=== PATIENT | male | born 1955 | race Caucasian/White ===

== ENCOUNTER 2022-04-24 10:35 | Inpatient (IN) | payer OTHER ==
[~2022-04-24] VITALS: Ht 170.2 cm; Wt 66.0 kg
[2022-04-24 11:09] LABS: Hematocrit 48.3 % (37.0-53.0); LYMPHOCYTES ABSOLUTE AUTO 0.18 K/mm3 (0.84-5.20); LYMPHOCYTES PERCENT AUTO 2 % (21-46); MONOCYTES ABSOLUTE AUTO 0.49 K/mm3 (0.16-1.47); MONOCYTES PERCENT AUTO 5 % (4-13); Mean Corpuscular HGB 30.1 pg (26.0-34.0); Mean Corpuscular HGB Conc 33.1 g/dL (31.5-36.5); Mean Corpuscular Volume 91 fL (80-100); Mean Platelet Volume 12.8 fL (9.1-12.4); NRBC ABSOLUTE 0.03 K/mm3 (0.00-0.02); NRBC Auto 0.3 /100 WBC (0.0-0.2); Platelet Count 131 K/mm3 (150-400); RDW Coefficient Variation 14.4 % (11.7-14.2); RDW Standard Deviation 47.8 fL (35.1-46.3); Red Blood Cell Count 5.31 M/mm3 (4.30-5.90); White Blood Cell Count 9.09 K/mm3 (4.00-11.30)
[2022-04-24 11:10] LABS: BASOPHILS ABSOLUTE AUTO 0.01 K/mm3 (0.00-0.23); BASOPHILS PERCENT AUTO 0 % (0-2); EOSINOPHILS PERCENT AUTO 0 % (0-6); IMMATURE GRAN ABSOLUTE AUTO 0.08 K/mm3 (0.00-0.10); IMMATURE GRAN PERCENT AUTO 1 % (0-1); NEUTROPHILS ABSOLUTE AUTO 8.33 K/mm3 (1.96-9.15); NEUTROPHILS PERCENT AUTO 92 % (41-73)
[2022-04-24 11:11] LABS: PCO2 Arterial 65.4 mmHg (35-45); PO2 Arterial 61.3 mmHg (80-100)
[2022-04-24 11:12] LABS: pH Blood Arterial 7.22 (7.35-7.45)
[2022-04-24 11:28] LABS: Alanine Aminotransfer (ALT/SGP 31 U/L (12-78); Albumin, Blood 2.3 g/dL (3.4-5.0); Albumin/Globulin Ratio 0.6 (0.8-1.8); Alk Phos 50 U/L (50-136); Anion Gap 14 mmol/L (6-16); Aspartate Aminotrans (AST/SGOT 61 U/L (12-37); Bilirubin, Total 0.6 mg/dL (0.1-1.0); Blood Urea Nitrogen 116 mg/dL (8-24); Bun/Creatinine Ratio 16.5 (12.0-20.0); CO2, Blood 28 mmol/L (21-32); CPK Creatine Kinase 183 U/L (39-308); Calcium, Blood 8.4 mg/dL (8.5-10.1); Chloride, Blood 95 mmol/L (98-108); Creatine Kinase MB <1.0 ng/mL (0.0-3.6); Creatine Kinase MB Index Unable to Calculate (0.0-4.0); Creatinine, Blood 7.05 mg/dL (0.60-1.20); Globulin, Blood 3.8 g/dL (2.2-4.0); Glomerular Filtration Rate 8 (60-); Glucose, Blood 105 mg/dL (70-99); Potassium, Blood 4.1 mmol/L (3.5-5.5); Sodium, Blood 137 mmol/L (136-145); Total Protein, Blood 6.1 g/dL (6.4-8.2)
[2022-04-24] MEDS ORDERED: Prinivil10 MG PO (12:36)
[2022-04-24] MEDS ORDERED: ALBU90OI INH (12:37)
[2022-04-24 13:44] LABS: Influenza B, PCR NEGATIVE (NEGATIVE); Resp Syncytial Virus, PCR NEGATIVE (NEGATIVE); SARS-Cov-2 (COVID-19) PCR, MMC NEGATIVE (NEGATIVE)
[2022-04-24 13:44] LABS: Base Excess Venous -4.6 mmol/L; Bicarbonate Venous 19.5 mmol/L (24.0-30.0); PCO2 Venous 63.7 mmHg (38-42); pH Blood Venous 7.18 (7.34-7.37)
[2022-04-24 13:46] LABS: Influenza A, PCR POSITIVE (NEGATIVE)
[2022-04-24 16:23] LABS: Anion Gap 10 mmol/L (6-16); Blood Urea Nitrogen 101 mg/dL (8-24); Bun/Creatinine Ratio 15.4 (12.0-20.0); CO2, Blood 26 mmol/L (21-32); Calcium, Blood 7.5 mg/dL (8.5-10.1); Chloride, Blood 103 mmol/L (98-108); Creatinine, Blood 6.54 mg/dL (0.60-1.20); Glomerular Filtration Rate 9 (60-); Glucose, Blood 121 mg/dL (70-99); Phosphorus, Blood 6.4 mg/dL (2.5-4.9); Potassium, Blood 4.7 mmol/L (3.5-5.5); Sodium, Blood 139 mmol/L (136-145)
--- NOTE | 2022-04-24 16:52 | NUR ---
PT ARRIVED TO ICU AT 1618 TRANSPORTED VIA GURNEY AFTER REPORT RECIEVED FROM ZAY NEWMAN. PT ARRIVES ON BIPAP, NODS APPRPRIATELY AND FOLLOWS COMMANDS BUT DOES NOT VERBALIZE. SKIN WITH UNBLANCHABLE REDNESS TO COCCYX AND BLUISH DISCOLORATION TO ELBOWS AND KNEES. PICTURES TAKEN AND PLACED IN CHART. SBP IN THE 70'S WITH A MAP > 65. DR. HUIZAR CONSULTED AND PLACING ORDERS. LAB AT BEDSIDE TO DRAW STAT LABS. RN TO CONTINUE TO MONITOR.
[2022-04-24 17:29] LABS: PCO2 Arterial 60.2 mmHg (35-45); PO2 Arterial 62.8 mmHg (80-100); pH Blood Arterial 7.19 (7.35-7.45)
--- NOTE | 2022-04-24 17:34 | NUR ---
CRITICAL ABG pH 7.19, pCO2 60.2, pO2 62.8, HCO3 19.1, BE -5.3 RESULTS CALLED AT 1735 BY CADE BREWER, RT
[2022-04-24 17:48] LABS: Source, Urine Foley catheter
[2022-04-24 17:53] LABS: Appearance, Urine Cloudy (Clear); Blood, Urine 5+ (Neg); Color, Urine Yellow (P-Yellow); Glucose Qualitative, Urine 2+ (Neg); Ketones, Urine 1+ (Neg); Leukocyte Esterase, Urine 1+ (Neg); Nitrite, Urine Pos (Neg); Protein, Urine 3+ (Neg); Urobilinogen, Urine NORM (Normal)
[2022-04-24 18:01] LABS: Bilirubin, Urine 1+ (Neg)
[2022-04-24 18:02] LABS: Bacteria Many /hpf; Renal Epithelial Few /hpf (0-Rare); Squamous Epithelial Cells Not Seen /hpf (Few); Transitional Epithelial Cells Rare /hpf (0-Rare)
--- NOTE | 2022-04-24 18:53 | NUR ---
END OF SHIFT SUMMARY PT ORIENTED X2, NODS APPROPRIATELY AND FOLLOWS COMMANDS BUT DOES NOT VERBALIZE MUCH BESIDES MOANING. HE DENIES PAIN DESPITE MOANING WITH MOVEMENT. ARMS AND LEGS STIFF WITH RELOCATION. SINUS RHYTHM, BP LOW WITH SBP 77-85, MAP 60-70, DR. HUIZAR NOTIFIED AND CRITICAL CARE CONSULT REQUESTED. DR. PERRIN NOTIFIED OF CONSULT, HE WILL COME TO BEDSIDE TO ASSESS FOR NEED FOR VASOPRESSORS AND AIRWAY. CURRENTLY ON BIPAP WITH O2 SATS 90-92%. LUNGS CLEAR, DIMINSHED IN BASES. NPO SINCE ARRIVAL TO ER, BS HYPOACTIVE. BOONE TO GRAVITY, ONLY 5ML URINE OUT SINCE BOONE PLACED, DR. HUIZAR NOTIFIED, URINE SENT FOR UA/CULTURE. SKIN WITH PURPLISH DISCOLORATION/MOTTLING, PICS TAKEN. HAS NON-BLANCHABLE REDNESS ON COCCYX, PICS TAKEN. PIV X3, ALL FLUSH WELL, NONE WITHDRAW BLOOD. POWERGLIDE PLACEMENT ATTEMPTED WITH NO SUCCESS. REPORT GIVEN TO ONCOMING SHIFT.
[2022-04-24 19:26] LABS: Albumin/Globulin Ratio 0.5 (0.8-1.8); Bilirubin, Total 0.5 mg/dL (0.1-1.0); Bun/Creatinine Ratio 15.9 (12.0-20.0); Calcium, Blood 7.8 mg/dL (8.5-10.1); Creatinine, Blood 6.74 mg/dL (0.60-1.20); Globulin, Blood 3.8 g/dL (2.2-4.0); Potassium, Blood 4.8 mmol/L (3.5-5.5); Total Protein, Blood 5.8 g/dL (6.4-8.2)
[2022-04-24 20:04] LABS: PCO2 Arterial 59.8 mmHg (35-45); PO2 Arterial 86.1 mmHg (80-100)
[2022-04-24 20:05] LABS: pH Blood Arterial 7.11 (7.35-7.45)
--- NOTE | 2022-04-24 20:30 | NUR ---
Code Summary: 1899 - Dr. Rios came to bedside and informed RN that pt needed to be intubated. 1906 - Pt was given 4mg of versed and 50 mcg of propofol prior to intubation 1908- Intubated with size 8.0 ETT 26cm at the teeth. BP was 74/58 (66) and 1L NS bolus started. 1910 - 200mcg of Neosynephrine given and repeat BP was 88/79 1916 - BP 44/29, gave another 400mcg of Neosynephrine and Norepinephrine drip started at 10mcg. 1919 - Unable to find a pulse in the carotid or femoral regions. CPR started and IV epinephrine given followed by an amp of bicarb and Ca Chloride. CPR continued for about 4 minutes before ROSC was achieved and pulse was able to be felt. 1923 - BP 124/86 1924 - Amiodarone bolus given 1927 - Norepinephrine drip increased to 20mcg. OGT was placed. 1931 - BP 99/83 - vasopressin drip started at 1933. 1935 - 50mcg Prop given in order for Dr. Rios to place a CVC/HD cath 1937 - BP 62/39 - increased Norepinephrine drip increased to 30mcg. 1940 - Epinephrine drip started at 5mcg per Dr. Rios. 1941 - Rocuronium 10mg given per Dr. Rios in order to place central line/ HD cath. 1942 - Propofol 40mcg given 1944 - BP 116/[address] Another 1L NS bolus started 1945 - Propofol drip started at 20mcg/kg/min 1952 - Amiodorone drip at 1mg/min 2019 - Left upper arm axillary arterial line placed by Dr. Rios
[2022-04-24] MEDS ORDERED: Vitamin D1000 UNI1 PO (21:33)
[2022-04-24] MEDS ORDERED: IRON18 MG PO (21:33)
[2022-04-25 00:07] LABS: PCO2 Arterial 42.3 mmHg (35-45); PO2 Arterial 115 mmHg (80-100); pH Blood Arterial 7.28 (7.35-7.45)
[2022-04-25 04:18] LABS: PCO2 Arterial 37.9 mmHg (35-45); PO2 Arterial 191 mmHg (80-100); pH Blood Arterial 7.33 (7.35-7.45)
[2022-04-25 05:10] LABS: Albumin, Blood 2.6 g/dL (3.4-5.0); Bilirubin, Total 0.9 mg/dL (0.1-1.0); Bun/Creatinine Ratio 17.1 (12.0-20.0); Calcium, Blood 7.4 mg/dL (8.5-10.1); Creatinine, Blood 5.54 mg/dL (0.60-1.20); Globulin, Blood 2.6 g/dL (2.2-4.0); Magnesium, Blood 1.9 mg/dL (1.6-2.4); Phosphorus, Blood 4.6 mg/dL (2.5-4.9); Potassium, Blood 3.8 mmol/L (3.5-5.5); Total Protein, Blood 5.2 g/dL (6.4-8.2)
[2022-04-25 05:17] LABS: Hematocrit 35.4 % (37.0-53.0); Hemoglobin 12.3 g/dL (13.5-17.5); Mean Corpuscular HGB 30.4 pg (26.0-34.0); Mean Corpuscular HGB Conc 34.7 g/dL (31.5-36.5); Mean Corpuscular Volume 88 fL (80-100); NRBC ABSOLUTE 0.05 K/mm3 (0.00-0.02); RDW Coefficient Variation 14.2 % (11.7-14.2); RDW Standard Deviation 45.4 fL (35.1-46.3); Red Blood Cell Count 4.04 M/mm3 (4.30-5.90); White Blood Cell Count 5.04 K/mm3 (4.00-11.30)
[2022-04-25 05:44] LABS: Mean Platelet Volume 13.1 fL (9.1-12.4); Platelet Count 85 K/mm3 (150-400)
[2022-04-25 05:54] LABS: BAND PERCENT MAN 30 % (0-8); BASOPHILS PERCENT MAN 0 % (0-2); EOSINOPHILS PERCENT MAN 0 % (0-6); LYMPHOCYTES ABSOLUTE MAN 0.35 K/mm3 (0.84-5.20); LYMPHOCYTES PERCENT MAN 7 % (21-46); MONOCYTES ABSOLUTE MAN 0.35 K/mm3 (0.16-1.47); MONOCYTES PERCENT MAN 7 % (4-13); NEUTROPHILS ABSOLUTE MAN 4.33 K/mm3 (1.96-9.15); SEG NEUTROPHILS PERCENT MAN 56 % (41-73); TOTAL CELLS COUNTED 100
--- NOTE | 2022-04-25 06:09 | NUR ---
Shift summary: Neuro: Pt is sedated on propofol. Pupils are 2mm equal and sluggish. He has a cough but no gag. Nonpurposeful movements to all extremities. At the beginning of the after intubation he was having movements that looked like posturing. Cardiac: Shortly after being intubated, the pt went into PEA arrest but ROSC was achieved. He was maxed on levo, epi and vaso but have since been decreaseing. Levophed is on standby, Epi is at 2 and vaso is at 0.04 with MAP >65. T-max is 100.4. SR/ST with HR 98-110. Pulses in BUE are doppler/thready and pedal pulses are thready. Resp: Intubated with a size 8.0 ETT 24cm at the teeth. Vent settings: 18/500/5/60. His lungs have improved overnight with Clear lungs in Flo upper lobes and crackles in the bases. He has thin pink tinged sputum. GI/: Pt is NPO but an OGT was inserted shortly after intubation. LBM 04/24 and has a pearce draining clear yellow urine. Total output was 175ml. 24 hour urine collection was started on 04/25 2208. Skin: Flo knees, hands and feet are mottled, cool and cyanotic. Cap refill >3. Pressure ulcer to coccyx covered with a mepilex foam dressing. Lines: PIV - IVETTE, Bilateral AC's. CVC HD cath to right subclavian. Arterial line to left axillary. Critical labs: Creatinine 5.54, Trop - 3848, Lactic acid - 4.3
--- NOTE | 2022-04-25 07:15 | NUR ---
ASSUMED CARE OF PT AT 0715 BEDSIDE REPORT RECIEVED FROM ZAY LOCKE. PT INTUBATED AND SEDATED. VASOPRESSORS WEANED DOWN OVER LAST 12 HOURS. BILAT WRIST RESTRAINTS IN PLACE. PT APPEARS TO BE RESTING COMFORTABLY. HAS A LINE IN LEFT AXILLA, TRIALYSIS CATH TO RIGHT CHEST, PIV X3, ALL INFUSING CONTINUOUSLY, ALL FLUSH WELL. OGT CLAMPED. BOONE ON ICE FOR 24 HOUR URINE COLLECTION. RN TO CONTINUE TO MONITOR.
--- NOTE | 2022-04-25 10:29 | NUR ---
Spiritual Care Visit : Nurse request Pt. is Inbutaed and not responsive. Spouse is at bedside and welcomes my visit. Spouse is unsettled about the serious nature of Pts. health. Listen with empathy and calming presence. Spouse displays evidence of engagement. Spouse requested prayer. Prayed with pt. and Spouse. Spouse verbalized gratitude for the spirit care visit.
[2022-04-25 12:50] LABS: Bun/Creatinine Ratio 18.8 (12.0-20.0); Calcium, Blood 7.2 mg/dL (8.5-10.1); Creatinine, Blood 5.15 mg/dL (0.60-1.20); Potassium, Blood 3.2 mmol/L (3.5-5.5)
[2022-04-25 15:40] LABS: Vancomycin, Random 13.7 ug/mL
[2022-04-25 18:25] LABS: Magnesium, Blood 1.6 mg/dL (1.6-2.4)
[2022-04-25 18:28] LABS: Albumin, Blood 2.6 g/dL (3.4-5.0); Anion Gap 12 mmol/L (6-16); Blood Urea Nitrogen 92 mg/dL (8-24); Bun/Creatinine Ratio 18.9 (12.0-20.0); CO2, Blood 24 mmol/L (21-32); Calcium, Blood 7.5 mg/dL (8.5-10.1); Chloride, Blood 101 mmol/L (98-108); Creatinine, Blood 4.87 mg/dL (0.60-1.20); Glomerular Filtration Rate 12 (60-); Glucose, Blood 166 mg/dL (70-99); Phosphorus, Blood 4.1 mg/dL (2.5-4.9); Potassium, Blood 3.3 mmol/L (3.5-5.5); Sodium, Blood 137 mmol/L (136-145)
--- NOTE | 2022-04-25 18:36 | NUR ---
END OF SHIFT SUMMARY NEURO: SEDATED, PROPOFOL INCREASED TO 20, FOLLOWS COMMANDS, NODS APPROPRIATELY CARDIAC: SR, BP SUPPORTED BY VASOPRESSIN AND EPINEPHRINE (SEE FLOWSHEET FOR TITRATIONS). AMIO INFUSING, WILL BE COMPLETED AT 2000. RESP: VENT SETTINGS REMAIN UNCHANGED, FI02 TITRATED DOWN TOLERATED. LUNGS CTA/DIMISHED IN BILAT BASES. OCCAS COUGH, SCANT PINK TINGED SECRETIONS. GI: OGT CLAMPED THROUGHOUT SHIFT. DIETARY CONSULT DONE AND TF ORDERED, ENDORSE TO NOC RN TO START. BS HYPOACTIVE. FSBG ORDERED EVERY 6 HOURS WITH REGULAR S/S (MEDIUM). : BOONE TO GRAVITY DRAINING CLEAR YELLOW URINE. BUMEX GIVEN 30 MIN AFTER ALBUMIN INFUSION WITH GOOD RESULT. URINE OUTPUT >[address] HUIZAR NOTIFIED. 24 HOUR URINE COLLECTION IN PROGRESS, COLLECTION CONTAINER KEPT ON ICE, TO BE COMPLETED AT 2200 TONIGHT. SKIN: CAP REFILL REMAINS > 3 SECONDS WITH BILAT HANDS AND FEET WITH POOR PERFUSION AND PURPLE DISCOLORATION. AFEBRILE. IV: TRIALYSIS CATH WITH 1 PORT INFUSING. PIV X3, ALL FLUSH WELL, 2 INFUSING, 1 SL. VANCOMYCIN GIVEN AFTER TROUGH RESULTED. POTASSIUM REPLACED X1 WITH SECOND REPLACEMENT ORDERED TO BE GIVEN ON NOC SHIFT. AT BEDSIDE, UPDATED ON POC, ALL QUESTIONS ANSWERED. SKIN
[2022-04-25 22:56] LABS: Protein, Urine Quantitative 39.5 mg/dL (0.0-11.9)
[2022-04-26 03:33] LABS: PCO2 Arterial 41.2 mmHg (35-45); pH Blood Arterial 7.47 (7.35-7.45)
[2022-04-26 03:54] LABS: Hematocrit 32.4 % (37.0-53.0); Hemoglobin 11.9 g/dL (13.5-17.5); Mean Corpuscular HGB 30.4 pg (26.0-34.0); Mean Corpuscular HGB Conc 36.7 g/dL (31.5-36.5); Platelet Count 79 K/mm3 (150-400); RDW Coefficient Variation 13.6 % (11.7-14.2); RDW Standard Deviation 41.2 fL (35.1-46.3); Red Blood Cell Count 3.91 M/mm3 (4.30-5.90)
[2022-04-26 04:08] LABS: Mean Corpuscular Volume 83 fL (80-100); Mean Platelet Volume 13.3 fL (9.1-12.4)
[2022-04-26 04:13] LABS: Albumin, Blood 2.3 g/dL (3.4-5.0); Anion Gap 12 mmol/L (6-16); Blood Urea Nitrogen 88 mg/dL (8-24); CO2, Blood 29 mmol/L (21-32); Calcium, Blood 7.4 mg/dL (8.5-10.1); Chloride, Blood 94 mmol/L (98-108); Creatinine, Blood 4.41 mg/dL (0.60-1.20); Glomerular Filtration Rate 14 (60-); Glucose, Blood 175 mg/dL (70-99); Magnesium, Blood 1.6 mg/dL (1.6-2.4); Phosphorus, Blood 3.4 mg/dL (2.5-4.9); Potassium, Blood 2.7 mmol/L (3.5-5.5); Sodium, Blood 135 mmol/L (136-145)
[2022-04-26 05:16] LABS: BAND PERCENT MAN 6 % (0-8); BASOPHILS PERCENT MAN 0 % (0-2); EOSINOPHILS PERCENT MAN 0 % (0-6); LYMPHOCYTES PERCENT MAN 3 % (21-46); MONOCYTES PERCENT MAN 4 % (4-13); SEG NEUTROPHILS PERCENT MAN 87 % (41-73); TOTAL CELLS COUNTED 100
--- NOTE | 2022-04-26 05:51 | NUR ---
Shift summary: Neuro: Pt is sedated on propofol. Pupils are 2mm equal and brisk. He has a cough but no gag. He follows commands but is extremely weak to his extremities. Cardiac: Levophed- 2 Epi- 2 Vaso- 0.04 with MAPs >65 SR/ST with HR 98-108. Pulses thready to all extremities. Flo feet are still mottled Resp: Intubated with a size 8.0 ETT 24cm at the teeth. Vent settings: 18/500/5/30. His lungs have improved overnight with Clear lungs in Flo upper lobes and crackles in the bases. He has minimal secretions GI/: Pt is NPO but an OGT. TF started at 20ml/hr- Pivot 1.5 Bagley draining clear yellow urine. Total output was 4200ml. 24 hour urine collection finished and sent to lab. Skin: Flo knees, hands and feet are mottled and cyanotic. Cap refill >3. Pressure ulcer to coccyx covered with a mepilex foam dressing. Skin tear to scrotum. Lines: PIV - IVETTE, Bilateral AC's. CVC HD cath to right subclavian. Arterial line to left axillary.
--- NOTE | 2022-04-26 07:16 | NUR ---
AROUND 0635 THIS AM PT HAD SHORT RUNS OF VTACH. DR. ARNOLD INFORMED OF LOW MAGNESIUM. MAGNESIUM AND AMIODORONE DRIP ORDERED AND STARTED.
--- NOTE | 2022-04-26 08:00 | NUR ---
SHIFT SUMMARY PT. REMAINS SEDATED AND INTUBATED. VASOPRESSORS INFUSING FOR MAP >65. ART LINE TO LEFT AXILLA. PT. HAS TRIALYSIS CATHETER TO RIGHT CHEST WALL. BOONE AND RECTAL TUBE DRAINING TO GRAVITY. TF INFUSING. PT FEET/ HANDS AND KNEES REMAIN PURPLE DISCOLORED AND MOTTLED.
--- NOTE | 2022-04-26 09:30 | NUR ---
PER DR. MILLER EPI GTT TITRATED OFF. LEVOPHED GTT TITRATED UP TO KEEP MAP >65. REMAINS ON VASOPRESSIN. AMIO GTT ALSO DCD PER DR. MILLER.
[2022-04-26 10:15] LABS: Magnesium, Blood 2.1 mg/dL (1.6-2.4); Potassium, Blood 2.8 mmol/L (3.5-5.5)
[2022-04-26 16:09] LABS: Vancomycin, Random 1.3 ug/mL
--- NOTE | 2022-04-26 17:48 | NUR ---
SHIFT SUMMARY PT. REMAINS SEDATED AND INTUBATED. PT. DOES GRIMACE WITH STIMULI AND OCCASIONALLY COUGHS. MED ONCE FOR PAIN. ART LINE REMAINS IN PLACE, CURRENTLY HAS LEVOPHED AND VASOPRESSIN INFUSING FOR BP SUPPORT. PT. HANDS, FEET, AND KNEES CONTINUE TO BE MOTTLED WITH PURPLE DISCOLORATION AND CAP REFILL > 3SEC. PT. HAS TF INFUSING GOAL REDUCED TO 25ML/HR THIS SHIFT. RECTAL TUBE DRAINING TO GRAVITY. BOONE IN PLACE DRAINING TO GRAVITY. REPORT TO ONCOMING RN.
--- NOTE | 2022-04-26 19:15 | NUR ---
ASSUMED CARE OF PT AT 1915 BEDSIDE REPORT RECIEVED FROM ZAY SANDHU. PT IS INTUBATED AND SEDATED, APPEARS TO BE RESTING COMFORTABLY. SINUS RHYTHM/SINUS TACHYCARDIA WITH PAC'S, BP SUPPORTED BY LEVOPHED AND VASOPRESSIN, A LINE TO LEFT AXILLA. BILAT SOFT WRIST RESTRAINTS IN PLACE. OGT W/TF INFUSING AT 25ML/HR (GOAL), RECTAL TUBE IN PLACE DRAINING BROWN LIQUID STOOL. BOONE TO GRAVITY DRAINING DILUTE YELLOW URINE. CYANOSIS TO HANDS/FEET IMPROVING, MEPILEX TO COCCYX. TRIALYSIS CATH TO RIGHT SC, INFUSING. PIV X2 TO LEFT ARM, INFUSING. NO FAMILY AT BEDSIDE.
--- NOTE | 2022-04-26 20:45 | NUR ---
DIALYSIS NOTE MICROSTRATEGY BI DEVELOPER IN TO FLUSH TRIALYSIS AND LOCK WITH SODIUM CITRATE AT REQUEST OF BEDSIDE RN WITH APPROVAL FROM MD. PT TOLERATED WELL.
[2022-04-27 03:47] LABS: Anion Gap 10 mmol/L (6-16); Blood Urea Nitrogen 81 mg/dL (8-24); Bun/Creatinine Ratio 22.8 (12.0-20.0); CO2, Blood 32 mmol/L (21-32); Chloride, Blood 94 mmol/L (98-108); Creatinine, Blood 3.56 mg/dL (0.60-1.20); Glomerular Filtration Rate 18 (60-); Glucose, Blood 140 mg/dL (70-99); Magnesium, Blood 2.1 mg/dL (1.6-2.4); Phosphorus, Blood 2.5 mg/dL (2.5-4.9); Potassium, Blood 2.9 mmol/L (3.5-5.5); Sodium, Blood 136 mmol/L (136-145); Vancomycin, Random 15.1 ug/mL
[2022-04-27 04:27] LABS: Hematocrit 32.4 % (37.0-53.0); Hemoglobin 11.8 g/dL (13.5-17.5); Mean Corpuscular HGB 30.5 pg (26.0-34.0); Mean Corpuscular HGB Conc 36.4 g/dL (31.5-36.5); Mean Corpuscular Volume 84 fL (80-100); Platelet Count 79 K/mm3 (150-400); RDW Coefficient Variation 13.6 % (11.7-14.2); RDW Standard Deviation 41.5 fL (35.1-46.3); Red Blood Cell Count 3.87 M/mm3 (4.30-5.90); White Blood Cell Count 10.71 K/mm3 (4.00-11.30)
[2022-04-27 04:38] LABS: Mean Platelet Volume 12.8 fL (9.1-12.4)
[2022-04-27 05:56] LABS: BAND PERCENT MAN 4 % (0-8); BASOPHILS PERCENT MAN 0 % (0-2); EOSINOPHILS PERCENT MAN 1 % (0-6); LYMPHOCYTES ABSOLUTE MAN 0.32 K/mm3 (0.84-5.20); LYMPHOCYTES PERCENT MAN 3 % (21-46); MONOCYTES ABSOLUTE MAN 0.32 K/mm3 (0.16-1.47); MONOCYTES PERCENT MAN 3 % (4-13); NEUTROPHILS ABSOLUTE MAN 9.96 K/mm3 (1.96-9.15); SEG NEUTROPHILS PERCENT MAN 89 % (41-73); TOTAL CELLS COUNTED 100
--- NOTE | 2022-04-27 06:21 | NUR ---
END OF SHIFT SUMMARY NEURO: SEDATED W/PROPOFOL, PRN FENTANYL GIVEN X2 TO ADJUNCT SEDATION. OPENS EYES TO VOICE CARDIAC: SINUS RHYTHM/SINUS TACHYCARDIA, BP SUPPORTED BY LEVOPHED AND VASOPRESSIN (SEE ICU-C FLOWSHEET FOR TITRATIONS) RESP: INTUBATED 8.0/25@LIPS SETTINGS AC/VC 18/500/5/30% GI: OGT WITH PIVOT INFUSING AT 25ML/HR (GOAL) WITH 30 ML FLUSH EVERY 4 HOURS. BS HYPOACTIVE, RECTAL TUBE IN PLACE DRAINING LIQUID BROWN STOOL. FLUSHED X1. : BOONE TO GRAVITY DRAINING CLEAR YELLOW URINE. 1800ML OUT THIS SHIFT. SKIN: MEPILEX TO COCCYX, BILAT HANDS/FEET/ELBOWS/KNEES CYANOTIC, IMPROVING. LINES: TRIALYSIS CATH TO RIGHT SC, INFUSING. PIV X2 TO LEFT ARM, UPPER ARM INFUSING, AC SL. LABS: K2.9 AFTER 40MEQ INFUSED. ADDITIONAL 40MEQ INFUSING THIS AM. DR. HUIZAR TO BEDSIDE AT 0600, ORDERS RECIEVED TO DECREASE LR RATE TO 125ML/HR, DRAW STAT K+ AT 1200 AND RN TO CONTACT HIM WITH RESULTS BY 1300. ALL ORDERS PLACED. NO FAMILY AT BEDSIDE. NO PHONE UPDATES PROVIDED.
--- NOTE | 2022-04-27 09:55 | NUR ---
CARE OF PT ASSUMED AT 0700, BEDSIDE REPORT TAKEN. PT SEDATED ON PROPOFOL AT 40MCG FOR VENT BIANCA. PT ATTEMPTS TO OPEN EYES TO VOICE, UNABLE TO FOLLOW COMMANDS. WILL GIVE SED VAC BIANCA AND WEAN PROPOFOL DOWN BIANCA. PT ON LEVO AT 4MCG AND VASO GTT TO KEEP MAP >65, WILL CONT TO WEAN DOWN BIANCA. PT HAS ART LINE TO LEFT AXILLARY, WITH GOOD WAVEFORM. BP TO ARM CORRILATES. PT HAD ABOUT 70CC TUBE FEED RESIDUAL THIS AM, MODERATE AMT OF TUBE FEEDS SUCTIONED FROM MOUTH AND ON TOP OF ETT. TUBE FEEDS STOPPED, DR MILLER NOTIFIED. SCANT CLEAR SECRETIONS SUCTIONED FROM ETT. ABD XRAY ORDERED. OGT TO BE PLACED TO SUCTION X 2HRS PER DR MILLER. MOTTLING NOTED TO KNEE W CYANOTIC TOES/FEET; LEFT WORSE THAN RIGHT. NIGHT RN STATES THIS IS IMPROVED. PT HAS TRIALYSIS CATH TO RIGHT SC. IV PORT IS BEING USED FOR PRESSORS, HD PORTION IS TAPED OFF. PT HAS NOT REQUIRED HD. 40MEQ K+ INFUSING, W REPEAT LAB ORDERED FOR 1200.
--- NOTE | 2022-04-27 12:12 | NUR ---
OVER 700CC TUBE FEED/GASTRIC CONTENT SUCTIONED FROM OGT. CT OF ABD COMPLETE, PT BIANCA WELL. TUBE FEEDS WILL REMAIN OFF FOR NOW W GI CONSULT WHEN AVAILABLE. PT DOES OPEN EYES TO VOICE AND NODS HEAD APPROPRIATELY, NODS HEAD NO TO PAIN. K+ LAB DRAWN, AWAITING RESULTS. PT'S UPDATED. NO OTHER CHANGES
--- NOTE | 2022-04-27 15:47 | NUR ---
VASOPRESSIN PLACED ON SB, LEVOPHED UP TO 6MCG. PICC PLACED FOR TPN. PT BIANCA WELL. PHONE CONSENT OBTAINED FROM PT'S . PT ABLE TO AWAKEN TO VOICE, NODS HEAD NO TO PAIN, AND SMILES. OKAY TO DC ART LINE PER DR MILLER. EXTREMITIES INCLUDING FEET ARE NOW PINK W GOOD CAP REFILL, MOTTLING AND CYANOSIS NO LONGER PRESENT. NO OTHER CHANGES.
--- NOTE | 2022-04-27 17:04 | NUR ---
ASSUMED CARE REPORT RECEIVED FROM ZAY WILLIS. PT SEDATED AND INTUBATED, APPEARS COMFORTABLE. LEVOPHED INFUSING, TITRATING TO KEEP MAP >60. PT'S LOYD VISITED AND WAS UPDATED.
--- NOTE | 2022-04-27 19:20 | NUR ---
ASSUMED CARE THIS NURSE ASSUMED CARE AT 1900 FROM ZAY GERARD FOLLOWING BEDSIDE REPORT. PATIENT IS INTUBATED AND SEDATED. PROPOFOL @ 40MCG/KG/MIN WITH SPONTANEOUS EYE OPENING AND EYE BROW RAISING. NO THRASHING OR PULLING AT RESTRAINTS, NO GRIMACING. LEVOPHED INF @ 8MCG/MIN, NS TKO, LR @ 125/HR, AND KCL 40 MEQ. VASOPRESSIN ON SB. ETT 8.0 25 @ LIP. PATIENT SHOWS WEAK COUGHING FOLLOWING SUCTIONING. BOONE AND RECTAL TUBE PATENET. 20G PIV TO LFA, PICC TO HELLEN W/ 2CM EXPOSED, ART LINE TO LT AXILLA, AND TRIALYSIS CATHETER TO RT SUBCLAVIAN. OGT TO LIS. VSS.
[2022-04-28 03:24] LABS: BASOPHILS ABSOLUTE AUTO 0.01 K/mm3 (0.00-0.23); BASOPHILS PERCENT AUTO 0 % (0-2); EOSINOPHILS ABSOLUTE AUTO 0.13 K/mm3 (0.00-0.68); EOSINOPHILS PERCENT AUTO 2 % (0-6); Hematocrit 29.5 % (37.0-53.0); Hemoglobin 10.9 g/dL (13.5-17.5); IMMATURE GRAN ABSOLUTE AUTO 0.04 K/mm3 (0.00-0.10); IMMATURE GRAN PERCENT AUTO 1 % (0-1); LYMPHOCYTES ABSOLUTE AUTO 0.45 K/mm3 (0.84-5.20); LYMPHOCYTES PERCENT AUTO 6 % (21-46); MONOCYTES ABSOLUTE AUTO 0.29 K/mm3 (0.16-1.47); MONOCYTES PERCENT AUTO 4 % (4-13); Mean Corpuscular HGB 30.9 pg (26.0-34.0); Mean Corpuscular HGB Conc 36.9 g/dL (31.5-36.5); Mean Corpuscular Volume 84 fL (80-100); Mean Platelet Volume 12.6 fL (9.1-12.4); NEUTROPHILS ABSOLUTE AUTO 6.89 K/mm3 (1.96-9.15); NEUTROPHILS PERCENT AUTO 88 % (41-73); Platelet Count 90 K/mm3 (150-400); RDW Coefficient Variation 13.9 % (11.7-14.2); RDW Standard Deviation 42.5 fL (35.1-46.3); Red Blood Cell Count 3.53 M/mm3 (4.30-5.90); White Blood Cell Count 7.81 K/mm3 (4.00-11.30)
[2022-04-28 03:40] LABS: Albumin, Blood 1.8 g/dL (3.4-5.0); Anion Gap 8 mmol/L (6-16); Blood Urea Nitrogen 75 mg/dL (8-24); Bun/Creatinine Ratio 25.4 (12.0-20.0); CO2, Blood 34 mmol/L (21-32); Calcium, Blood 8.2 mg/dL (8.5-10.1); Chloride, Blood 97 mmol/L (98-108); Creatinine, Blood 2.95 mg/dL (0.60-1.20); Glomerular Filtration Rate 23 (60-); Glucose, Blood 96 mg/dL (70-99); Magnesium, Blood 1.8 mg/dL (1.6-2.4); Phosphorus, Blood 2.6 mg/dL (2.5-4.9); Potassium, Blood 3.2 mmol/L (3.5-5.5); Sodium, Blood 139 mmol/L (136-145)
--- NOTE | 2022-04-28 04:45 | NUR ---
SBT SBT INITIATED AT 409. PROPFOL @ 5MCG/KG/MIN. PATIENT OPENING EYES SPONTANEOUSLY, MAKING EYE CONTACT WITH TRACKING, FOLLOWING COMMANDS. SEE RT NOTES FOR VENT SETTINGS. SPO2 > 95%. PATIENT BECAME TACHYPNEIC IN 40'S-50'S AND TIDAL VOLUMES 180'S-250'S. ETCO2 INCREASED FROM HIGH 20'S TO LOW 40'S. SPO2 MAINTAINED > 95%. CALL MADE TO RT SHARON TO UPDATE WITH INFORMATION ABOVE. SBT ENDED AT 419 WITH RETURN TO PREVIOUS VENT SETTINGS AC/VC 18/500/5/30%. PROPFOL TITRATED TO PATIENT COMPLIANCE AND NOW AT 15 MCG/KG/MIN.
[2022-04-28 05:22] LABS: PCO2 Arterial 45.6 mmHg (35-45); PO2 Arterial 71.2 mmHg (80-100); pH Blood Arterial 7.49 (7.35-7.45)
--- NOTE | 2022-04-28 06:27 | NUR ---
SHIFT SUMMARY PATIENT REMAINED INTUBATED AND SEDATED. SBT COMPLETED-SEE "SBT" NOTE. ARTERTIAL LINE REMOVED WITH NO BLEEDING OR HEMATOMA. BOONE PATENT WITH 1300ML URINE OUT. RECTAL TUBE IN PLACE WITH 100ML OUT. LABS SHOWED POTASSIUM 3.2-40MEQ KCL ORDERED BY DR. HUIZAR AND INF. BUN & CREAT IMPROVING. DR. HUIZAR ORDERED ALDACTONE PT, BUT HAS BEEN DC'D D/T GI INTOLERANCE. POTASSIUM RECHECK @ 1100 WITH CALL TO GAYE BY 1200. LR DECREASED TO 100ML/HR, LEVOPHED DOWN TO 4MCG/MIN, PROPOFOL DOWN TO 25MCG/KG/MIN. VSS. NODS HEAD "YES/NO" TO SIMPLE QUESTIONS AND TRACKS SOUND AND MOVEMENT. FOLLOWS COMMANDS. NO OTHER CHANGES DURING SHIFT.
--- NOTE | 2022-04-28 08:42 | NUR ---
CARE OF PT ASSUMED AT 0700. PROPOFOL AT 25MCG FOR MECH VENT BIANCA. PT IS LIGHTLY SEDATED, OPENS EYES TO VOICE, DENIES PAIN, ABLE TO NOD HEAD APPROP. TO QUESTIONS. LEVOPHED AT 4MCG, VASOPRESSIN REMAINS OFF. LR AT 100. PER MIS DIRECTOR, PT FAILED WEAN D/T INCREASED WOB, HIGH RESP. CYANOSIS AND MOTTLING REMAIN RESOLVED. OGT TO LIS W SMALL AMT OF OUTPUT. PT RECEIVING 40MEQ OF K+ W RECHECK ORDERED FOR 1100.
--- NOTE | 2022-04-28 09:07 | NUR ---
PT WIDE AWAKE, VERY RESTLESS, GRIMACING, COUGHING ON VENT. PT HAD MODERATE AMT OF EMESIS DESPITE OGT AT LIS. PT DENIED PAIN OR NAUSEA. PROPOFOL INCREASED TO 35MCG, PT CONT TO LOOK VERY UNCOMFORTABLE; FENT 50MCG GIVEN FOR SEDATION ADJUNCT.
--- NOTE | 2022-04-28 11:27 | NUR ---
K+ CALLED IN TO DR HUIZAR. PROPOFOL DECREASED TO 30MCG FOR BP TRENDING DOWN. TPN ORDERS WHERE PLACED, TRIALYSIS CATHETER TO BE REMOVED PER DR MILLER. NO OTHER CHANGES.
--- NOTE | 2022-04-28 14:15 | NUR ---
TRIALYSIS CATHETER DC'D FOLLOWING PROCEDURE. DR MILLER DECREASED VENT RATE DOWN TO 14 FROM 18.
--- NOTE | 2022-04-28 17:52 | NUR ---
PROPOFOL AT 30MCG, PT WAKES TO VOICE AND CONTINUES TO NOD HEAD APPROPRATELY TO QUESTIONS. PT HAS DENIED PAIN T/O SHIFT BUT OCCATIONAL HAS NODDED YES TO BEING UNCOMFORTABLE. PT COUGHS AND IS RESTLESS AFTER CARE/TURNS BUT QUICKLY FALLS BACK TO SLEEP AND HAS OVERALL BIANCA VENT. PT REQUIRED FENT ONLY ONCE ADJUNCT TO SED. TPN STARTED. PICC LINE DRSG CHANGED. TRIALYSIS DC'D. LEVOPHED AT 4MCG T/O SHIFT, MAP >65. DR MILLER DECREASED RATE TO 14. PT HAS MOD AMT OF EMESIS THIS AM, NO EMESIS SINCE THEN. OGT TO LIS W MINIMAL OUTPUT. PT'S UPDATED.
--- NOTE | 2022-04-28 22:01 | NUR ---
ASSUMPTION OF CARE/ASSESSMENT: ASSUMED CARE OF PT AT 1900. PT IS CURRENTLY INTUBATED AND SEDATED; PROPOFOL GTT @ 30 MCG/KG/MIN AND VENT SETTINGS AC/VC 14/500/5/30%. PT IS ALERT TO VERBAL STIMULI AND IS ABLE TO FOLLOWING DIRECTIONS AND NOD HEAD YES/NO TO SIMPLE QUESTIONS. PT DENIES C/O PAIN AT THIS TIME. LUNG SOUNDS ARE CLEAR IN THE UPPER LOBES AND DIM IN THE BASES BILATERALLY; RR 18-20, SPO2 06<. HR IN THE 90'S, SBP 100-110, LEVO GTT @ 4 MCG/MIN, SR ON MONITOR AND CONTINUOUS DESK PEN SET ASSEMBLER IN PLACE. OGT IN PLACE AND ON LIS WITH GREEN OUTPUT; ABD SOFT, NON-TENDER AND BOWEL SOUNDS HYPOACTIVE. TPN GTT @ 75 MLS/HR. TEMP BOONE IN PLACE AND DRAINING TO GRAVITY. PPP X 4, SKIN IS WARM/PINK AND CAP REFIL < 3 SECONDS. WILL CONTINUE TO MONITOR
[2022-04-29 03:18] LABS: BASOPHILS ABSOLUTE AUTO 0.01 K/mm3 (0.00-0.23); BASOPHILS PERCENT AUTO 0 % (0-2); EOSINOPHILS ABSOLUTE AUTO 0.14 K/mm3 (0.00-0.68); EOSINOPHILS PERCENT AUTO 2 % (0-6); Hematocrit 28.9 % (37.0-53.0); Hemoglobin 10.1 g/dL (13.5-17.5); IMMATURE GRAN ABSOLUTE AUTO 0.04 K/mm3 (0.00-0.10); IMMATURE GRAN PERCENT AUTO 1 % (0-1); LYMPHOCYTES ABSOLUTE AUTO 0.48 K/mm3 (0.84-5.20); LYMPHOCYTES PERCENT AUTO 8 % (21-46); MONOCYTES ABSOLUTE AUTO 0.27 K/mm3 (0.16-1.47); MONOCYTES PERCENT AUTO 4 % (4-13); Mean Corpuscular HGB 30.1 pg (26.0-34.0); Mean Corpuscular HGB Conc 34.9 g/dL (31.5-36.5); Mean Corpuscular Volume 86 fL (80-100); Mean Platelet Volume 12.5 fL (9.1-12.4); NEUTROPHILS ABSOLUTE AUTO 5.15 K/mm3 (1.96-9.15); NEUTROPHILS PERCENT AUTO 85 % (41-73); Platelet Count 119 K/mm3 (150-400); RDW Coefficient Variation 14.3 % (11.7-14.2); RDW Standard Deviation 44.5 fL (35.1-46.3); Red Blood Cell Count 3.35 M/mm3 (4.30-5.90); White Blood Cell Count 6.09 K/mm3 (4.00-11.30)
[2022-04-29 03:41] LABS: Albumin, Blood 1.8 g/dL (3.4-5.0); Anion Gap 6 mmol/L (6-16); Blood Urea Nitrogen 72 mg/dL (8-24); Bun/Creatinine Ratio 26.2 (12.0-20.0); CO2, Blood 35 mmol/L (21-32); Calcium, Blood 8.4 mg/dL (8.5-10.1); Chloride, Blood 101 mmol/L (98-108); Creatinine, Blood 2.75 mg/dL (0.60-1.20); Glomerular Filtration Rate 25 (60-); Glucose, Blood 118 mg/dL (70-99); Magnesium, Blood 2.3 mg/dL (1.6-2.4); Phosphorus, Blood 2.7 mg/dL (2.5-4.9); Potassium, Blood 3.1 mmol/L (3.5-5.5); Sodium, Blood 142 mmol/L (136-145)
--- NOTE | 2022-04-29 06:13 | NUR ---
SHIFT SUMMARY: NO ACUTE CHANGES THIS SHIFT. PT REMAINS INTUBATED AND SEDATED WITH PROPOFOL GTT @ 30 MCG AND VENT SETTINGS AC/VC 14/500/5/30%; SPO2 96< AND RR 18-20. PT HAS HAD MODERATE AMOUNTS OF ORAL SECRETIONS THIS SHIFT. LEVO GTT @ 4 WITH SBP 100'S AND MAP 75<. PT RECIEVED CHG BATH AND COMPLETE LINEN CHANGE THIS SHIFT. PT HAD GOOD URINE OUTPUT; 1400 MLS OUT; 50 ML RECTAL TUBE OUTPUT. POTASSIUM AT 3.1 THIS MORNING AND REPLACEMENT INFUSING AT THIS TIME. VERBAL ORDERS PER DR. CHARLES TO RECHECK POTASSIUM AT 1200 AND CALL WITH RESULTS BY 1300. PT GRIMANCING AND VERY UNCOMFORTABLE WITH ORAL CARE THIS SHIFT. WILL CONTINUE TO MONITOR UNTIL ONCOMING RN ARRIVES.
--- NOTE | 2022-04-29 07:30 | NUR ---
ASSUME CARE: I have assumed care of this patient.
--- NOTE | 2022-04-29 14:00 | NUR ---
Review of pt in rounds. prognosis is poor will speak with family about code status.
--- NOTE | 2022-04-29 15:06 | NUR ---
04/29/22 1506 Cyndee Andres EGD CASE IN ICU02; RIVERS AND LAKES LEVERMAN PRESENT IN ROOM MAINTAINING ADEQUATE SEDATION LEVELS. RT IN ROOM MANAGING VENT & AIRWAY. History, Chart, Medications and Allergies reviewed before start of procedure.
[2022-04-29 16:08] LABS: IMMUNOGLOBULIN A, QN, SERUM 162 mg/dL (61-437); IMMUNOGLOBULIN G, QN, SERUM 458 mg/dL (603-1613); IMMUNOGLOBULIN M, QN, SERUM 38 mg/dL (20-172)
--- NOTE | 2022-04-29 18:36 | NUR ---
SHIFT SUMMARY: EGD performed at bedside today. CT abdomen with contrast scheduled for 2099; contrast given through OG. OG was replaced after original was removed with EGD. Minimal output from rectal tube. ETT advanced two cm. Pt shakes head back and forth forcefully during cares.
--- NOTE | 2022-04-29 20:18 | NUR ---
ASSUMTPTION OF CARE/ASSESSMENT: ASSUMED CARE OF PT AT 1900. PT IS INTUBATED AND SEDATED WITH PROPOFOL GTT @ 50 MCG AND VENT SETTINGS AC/VC 14/500/5/30%. PT IS RESPONDING TO VERBAL STIMULI, ANSWERING SIMPLE QUESTIONS BY SHAKING HEAD YES/NO, AND FOLLOWING SIMPLE COMMANDS; AT THIS TIME PT HAS DENIED PAIN. LUNG SOUNDS ARE CLEAR IN THE UPPER LOBES AND DIM IN THE BASES BILATERALLY; SPO2 94<, RR 14-16. PT SR ON MONITOR WITH HR IN TH2 80'S, SBP 90'S, MAP 70< AND LEVO ON SB. OGT PRESENT AND CURRENTLY CLAMPED IN PREPARATION FOR ABD CT SCAN WITH ORAL CONTRAST INSTILLED BY DAY SHIFT RN. PT ABD IS FIRM, NON-TENDER; BOWEL SOUNDS HYPOACTIVE. RECTAL TUBE IN PLACE AND DRAINING TO GRAVITY. TPN CURRENTLY INFUSING @ 55 MLS/HR. PT SKIN IS WARM/PINK AND PPP X 4. PT DAUGHTER, BEATRIZ, CALLED AND THIS RN GAVE UPDATE; ALL QUESTIONS ANSWERED AT THIS TIME AND DAUGHTER UPDATED REGARDING ABD CT SCAN SCHEDULED FOR 2099. WILL CONTINUE TO MONITOR.
[2022-04-30 04:26] LABS: BASOPHILS ABSOLUTE AUTO 0.01 K/mm3 (0.00-0.23); BASOPHILS PERCENT AUTO 0 % (0-2); EOSINOPHILS ABSOLUTE AUTO 0.18 K/mm3 (0.00-0.68); EOSINOPHILS PERCENT AUTO 3 % (0-6); Hematocrit 29.1 % (37.0-53.0); Hemoglobin 10.1 g/dL (13.5-17.5); IMMATURE GRAN ABSOLUTE AUTO 0.05 K/mm3 (0.00-0.10); IMMATURE GRAN PERCENT AUTO 1 % (0-1); LYMPHOCYTES ABSOLUTE AUTO 0.52 K/mm3 (0.84-5.20); LYMPHOCYTES PERCENT AUTO 8 % (21-46); MONOCYTES ABSOLUTE AUTO 0.27 K/mm3 (0.16-1.47); MONOCYTES PERCENT AUTO 4 % (4-13); Mean Corpuscular HGB 30.5 pg (26.0-34.0); Mean Corpuscular HGB Conc 34.7 g/dL (31.5-36.5); Mean Corpuscular Volume 88 fL (80-100); Mean Platelet Volume 11.6 fL (9.1-12.4); NEUTROPHILS ABSOLUTE AUTO 5.17 K/mm3 (1.96-9.15); NEUTROPHILS PERCENT AUTO 83 % (41-73); Platelet Count 155 K/mm3 (150-400); RDW Coefficient Variation 14.6 % (11.7-14.2); RDW Standard Deviation 46.6 fL (35.1-46.3); Red Blood Cell Count 3.31 M/mm3 (4.30-5.90)
[2022-04-30 04:43] LABS: Albumin, Blood 1.8 g/dL (3.4-5.0); Anion Gap 6 mmol/L (6-16); Blood Urea Nitrogen 71 mg/dL (8-24); Bun/Creatinine Ratio 31.4 (12.0-20.0); CO2, Blood 34 mmol/L (21-32); Calcium, Blood 8.7 mg/dL (8.5-10.1); Chloride, Blood 103 mmol/L (98-108); Creatinine, Blood 2.26 mg/dL (0.60-1.20); Glomerular Filtration Rate 31 (60-); Glucose, Blood 120 mg/dL (70-99); Magnesium, Blood 2.3 mg/dL (1.6-2.4); Phosphorus, Blood 2.9 mg/dL (2.5-4.9); Potassium, Blood 3.4 mmol/L (3.5-5.5); Sodium, Blood 143 mmol/L (136-145)
--- NOTE | 2022-04-30 05:52 | NUR ---
SHIFT SUMMARY: PT REMAINS INTUBATED AND SEDATED WITH PROPOFOL GTT @ 40 MCG AND VENT SETTINGS AC/VC 14/500/5/30%. PT TAKEN DOWN FOR ABD CT @ 2100 AND STILL WAITING ON RESULTS. CHG BATH COMPLETED AND LINEN CHANGE. LEVO GTT @ 2 MCG; HR 70'S AND SBP 100'S. WILL CONTINUE TO MONITOR UNTIL ONCOMING RN ARRIVES.
--- NOTE | 2022-04-30 08:33 | NUR ---
INITIAL ASSESSMENT PATIENT INTUBATED AND ON SEDATION. PATIENT RESPONDS TO VERBAL STIMULI WITH MOVING EYEBROWS UP AND DOWN. PATIENT RESPONDS TO NOXIOUS STIMULI BY OPENING EYES AND SCRUNCHING EYES. PATIENT AFEBRILE. PATIENT ON VENT SETTINGS OF ACVC+ 14, TV 500, TI 0.95, PEEP 5 AND 30% FIO2. LUNGS CLEAR IN UPPER LOBES AND DIMINISHED IN LOWER LOBES. MODERATE AMOUNT OF THICK, PALE YELLOW SECRETIONS BEING SUCTIONED FROM ETT. WEAK COUGH NOTED. PATIENT IN SR, HR 70S TO 80S. SBP 80S TO LOW 100S. PATIENT EDEMATOUS TO ARMS AND LEGS. HYPOACTIVE BOWEL SOUNDS NOTED. OG IN PLACE; CLAMPED. RECTAL TUBE IN PLACE DRAINING BROWN, LIQUID STOOL. TEMP BOONE DRAINING DARK YELLOW COLORED URINE. WOUND TO COCCYX. R ELBOW RED. SCATTERED BRUISES NOTED. SKIN TEAR NOTED TO SCROTUM. BOTTOM OF BILAT FEET AND BILAT KNEES RED. NS TKO. CPN AT 55 MLS/ HOUR. PROPOFOL AT 40 MCG/ KG/ MINUTE. LEVOPHED SB. PATIENT RECEIVED 20 MEQ KCL IV THIS AM FOR POTASSIUM OF 3.4 THIS AM. BED LOW, CALL LIGHT IN REACH. WILL CONTINUE TO MONITOR PATIENT FREQUENTLY THROUGHOUT SHIFT.
--- NOTE | 2022-04-30 12:00 | NUR ---
HR IN THE 90S. SBP IN THE LOW 100S. PATIENT MOVING LEGS AND ARMS TO NOXIOUS STIMULI. NO OTHER ACUTE CHANGES TO NOTE ON AT THIS TIME. WILL CONTINUE TO MONITOR.
--- NOTE | 2022-04-30 13:51 | NUR ---
Spiritual Care Visit. Pt. is intubated but sitting up in a recliner. Spouse is present. Pt. displays evidence of being more aware of his surroundings. Facilitate a family update with the spouse. prayed for Pt. Spouse verbalized gratitude for the spiritual care visit.
--- NOTE | 2022-04-30 16:00 | NUR ---
TEMP OF 100.4 DEGREES FAHRENHEIT. HR IN THE 90S. SBP IN THE 80S. NO OTHER ACUTE CHANGES TO NOTE ON AT THIS TIME. AT BEDSIDE.
[2022-04-30 18:09] LABS: ANTIMYELOPEROXIDASE (MPO) ABS <0.2 units (0.0-0.9); ANTIPROTEINASE 3 (PR-3) ABS <0.2 units (0.0-0.9); ATYPICAL PANCA <1:20 titer (Neg:<1:20); CYTOPLASMIC (C-ANCA) <1:20 titer (Neg:<1:20); PERINUCLEAR (P-ANCA) <1:20 titer (Neg:<1:20)
--- NOTE | 2022-04-30 18:42 | NUR ---
SHIFT SUMMARY PATIENT REMAINED INTUBATED AND ON SEDATION. PATIENT REMAINED RESPONDING TO VERBAL STIMULI AND MOVING ARMS AND LEGS TO NOXIOUS STIMULI. PATIENT HAD TMAX OF 100.4 DEGREES FAHRENHEIT THIS SHIFT. PATIENT GIVEN PRN FENTANYL TWICE THIS SHIFT. PATIENT REMAINED ON ACVC+ 14, TV 500, TI 0.95, PEEP 5 AND 30% FIO2. LUNGS REMAINED CLEAR; DIM IN LOWER LOBES. CONTINUED TO SUCTION MODERATE AMOUNT OF THICK, PALE YELLOW SECRETIONS FROM ETT. PATIENT SR TO SR, HR 70S TO LOW 100S. SBP 80S TO 120S. PATIENT REMAINS EDEMATOUS. 50 MLS OF BROWN, LIQUID STOOL OUT FROM RECTAL TUBE. OG REMAINED CLAMPED PER DR. SIMMONS. BOONE DRAINED 2075 MLS OF YELLOW COLORED URINE. PATIENT RECEIVED 2 DOSES BUMEX THIS SHIFT. NO CHANGES TO SKIN NOTED. PATIENT REPOSITIONED Q2H. NS REMAINS TKO, CPN AT 55 MLS/ HOUR, PROPOFOL AT 40 MCG/ KG/ MINUTE, LEVOPHED ON SB. 20 MEQ KCL AND 100 MEQ KCL PT GIVEN FOR AM POTASSIUM OF 3.4. FLAGYL STARTED. BLOOD SUGARS 112 AND 86. PATIENT OOB TO CHAIR WITH LIFT THIS SHIFT. HERE IN AFTERNOON. PATIENT APPEARS COMFORTABLE AT THIS TIME. BED LOW, CALL LIGHT IN REACH. REPORT WILL BE GIVEN TO ASSUMING AIR BOX TESTER NURSE SHORTLY.
--- NOTE | 2022-04-30 19:00 | NUR ---
ASSUMED CARE ASSUMED CARE OF PATIENT. REMAINS INTUBATED- AC/VC+ 14/500/5/30%. RR 15-16. SEDATED WITH PROPOFOL AT 40MCG/KG/MIN. OPENS EYES TO NOXIOUS STIMULI. SHAKES HEAD "NO" WHEN RN INFORMS HIM OF CARE/TREATMENT TO BE DONE. MOVES HEAD ON PILLOW AND HAS MINIMAL MOVEMENT OF UPPER/LOWER EXTREMITIES. BILATERAL SOFT WRIST RESTRAINTS IN PLACE TO PREVENT SELF-EXTUBATION. MONITOR SHOWS NSR, RATE 90s. BP STABLE. LEVOPHED REMAINS OFF AT THIS TIME. NG CLAMPED AT THIS TIME PER MD ORDER. BOONE PATENT AND DRAINING TO GRAVITY. SEE SHIFT ASSESSMENT FOR FULL ASSESSMENT.
[2022-05-01 03:48] LABS: Hematocrit 28.5 % (37.0-53.0); Hemoglobin 9.9 g/dL (13.5-17.5); Mean Corpuscular HGB 30.4 pg (26.0-34.0); Mean Corpuscular HGB Conc 34.7 g/dL (31.5-36.5); Mean Corpuscular Volume 87 fL (80-100); Mean Platelet Volume 11.4 fL (9.1-12.4); Platelet Count 192 K/mm3 (150-400); RDW Coefficient Variation 14.6 % (11.7-14.2); RDW Standard Deviation 46.5 fL (35.1-46.3); Red Blood Cell Count 3.26 M/mm3 (4.30-5.90); White Blood Cell Count 5.47 K/mm3 (4.00-11.30)
[2022-05-01 04:17] LABS: Albumin, Blood 1.8 g/dL (3.4-5.0); Anion Gap 6 mmol/L (6-16); Blood Urea Nitrogen 75 mg/dL (8-24); Bun/Creatinine Ratio 36.2 (12.0-20.0); CO2, Blood 35 mmol/L (21-32); Calcium, Blood 8.7 mg/dL (8.5-10.1); Chloride, Blood 104 mmol/L (98-108); Creatinine, Blood 2.07 mg/dL (0.60-1.20); Glomerular Filtration Rate 34 (60-); Glucose, Blood 115 mg/dL (70-99); Magnesium, Blood 2.4 mg/dL (1.6-2.4); Phosphorus, Blood 3.1 mg/dL (2.5-4.9); Potassium, Blood 3.4 mmol/L (3.5-5.5); Sodium, Blood 145 mmol/L (136-145)
--- NOTE | 2022-05-01 05:57 | NUR ---
SHIFT SUMMARY NO ACUTE CHANGES DURING NOC. REMAINS INTUBATED- AC/VC+ 14/500/5/30%. SEDATED WITH PROPOFOL AT 50MCG/KG/MIN. NO NEURO CHANGES. MOVES EXTREMITIES, BUT NOT FOLLOWING COMMANDS. SHAKES HEAD "NO" FREQUENTLY WHEN RN PROVIDING CARE. BILATERAL SOFT WRIST RESTRAINTS REMAIN IN PLACE. MONITOR SHOWS NSR, RATE 70s-90s DURING NOC. BP STABLE- LEVOPHED REMAINS OFF. AFEBRILE. OG CLAMPED PER ORDER. BOONE PATENT AND DRAINING TO GRAVITY. RECTAL TUBE IN PLACE. CPN INFUSING AT 55ML/HR PER ORDER. REMAINS IN DROPLET ISOLATION.
[2022-05-01 09:10] LABS: M-SPIKE, % Comment: % (Not Observed); PROTEIN,TOTAL,URINE 13.4 mg/dL (Not Estab.)
--- NOTE | 2022-05-01 09:18 | NUR ---
CARE OF PT ASSUMED AT 0700. BEDSIDE REPORT TAKEN. PT SEDATED ON PROPOFOL AT 40MCG FOR VENT TOLERANCE. PT OPENS EYES TO COMMAND, AND ABLE TO SUPERVISOR MODERN LANGUAGES HANDS LIGHTLY TO COMMAND, PT NOT NODING HEAD TO QUESTIONS HE DID FRIDAY. PROPOFOL DECREASED TO 35MCG. PT MORE RESISTANT TO CARE, SWINGS HEAD BACK AND FORTH W ANY CARE. PT HYPOTENSIVE W MAPS >65. DIFFICULT TO FLUSH OGT THIS AM, WILL NOTIFY DR SIMMONS. TPN AT 55, PRESSORS OFF. LARGE AMT OF THICK ETT SECRETIONS, MORE THAN FRIDAY.
--- NOTE | 2022-05-01 10:02 | NUR ---
DR SIMMONS IN TO SEE PT, FULL UPDATE GIVEN. DOBHOFF TO BE PLACED. SPUTUM TO BE SENT.
--- NOTE | 2022-05-01 11:23 | NUR ---
DOBHOFF PLACED, THIS TOOK SEVERAL ATTEMPTS WITH FIRST 2 ATTEMPTS ENDING IN LUNG, PT'S SATS DID NOT DROP, DR SIMMONS WAS AT BEDSIDE. 3RD ATTEMPT SUCCESSFUL, BUT RETRACTED 10CM [address] SIMMONS. CHEST XRAY AND ABD XRAY TAKEN, OKAY TO USE PER DR SIMMONS. PT WAS MEDICATED W FENT AND ATIVAN TO HELP HIM BIANCA PROCEDURE HE WAS THRASHING W FIRST ATTEMPT. BP DID DROP D/T SEDATION AT 1100; PROPOFOL PLACED ON STANDBY, WILL RESUME WHEN PT MORE AWAKE AND BP IMPROVED. BP TRENDING UP. NEW ORDERS PLACED BY DR SIMMONS.
--- NOTE | 2022-05-01 16:23 | NUR ---
VHP STARTED AT 10CC/HR;TRICKLE FEEDS. DR SIMMONS AT BEDSIDE TO CHECK ON PT. NO OTHER CHANGES.
--- NOTE | 2022-05-01 19:00 | NUR ---
ASSUMED CARE ASSUMED CARE OF PATIENT. REMAINS INTUBATED- AC/VC+ 14/500/5/30%. RR 15-18. SEDATED WITH PROPOFOL AT 35MCG/KG/MIN. OPENS EYES TO VERBAL STIMULI. WITHDRAWS EXTREMITIES TO NOXIOUS STIMULI, BUT DOES NOT FOLLOW COMMANDS AT THIS TIME. REACHES FOR ETT WITH LEFT HAND WHEN RESTRAINTS LOOSENED. SHAKES HEAD "NO" AGGRESSIVELY WHEN RN MENTIONS REPOSITIONING. MONITOR SHOWS NSR, RATE 90s. BP STABLE. TEMP 99.3F PER BOONE TEMP PROBE. DOBHOFF NOTED- VHP TRICKLE FEED AT 10ML/HR. 30ML H20 Q4H FOR TUBE PATENCY. RECTAL TUBE IN PLACE WITH SCANT LIQUID BROWN STOOL. BOONE PATENT AND DRAINING TO GRAVITY. SEE SHIFT ASSESSMENT FOR FULL ASSESSMENT,
--- NOTE | 2022-05-02 02:30 | NUR ---
BOONE LEAKING BED NOTED TO BE SATURATED WITH URINE. BOONE PATENT, BUT BALLOON NOTED TO ONLY HAVE 7-8ML WATER IN IT. REINFLATED TO 10ML AT THIS TIME AND WILL CONTINUE TO MONITOR.
[2022-05-02 05:18] LABS: Hemoglobin 9.8 g/dL (13.5-17.5); Mean Corpuscular HGB 30.5 pg (26.0-34.0); Mean Corpuscular Volume 87 fL (80-100); Mean Platelet Volume 11.3 fL (9.1-12.4); Platelet Count 251 K/mm3 (150-400); RDW Coefficient Variation 14.5 % (11.7-14.2); RDW Standard Deviation 45.7 fL (35.1-46.3); Red Blood Cell Count 3.21 M/mm3 (4.30-5.90); White Blood Cell Count 7.32 K/mm3 (4.00-11.30)
[2022-05-02 05:35] LABS: Anion Gap 4 mmol/L (6-16); Blood Urea Nitrogen 89 mg/dL (8-24); Bun/Creatinine Ratio 46.1 (12.0-20.0); CO2, Blood 37 mmol/L (21-32); Chloride, Blood 102 mmol/L (98-108); Creatinine, Blood 1.93 mg/dL (0.60-1.20); Glomerular Filtration Rate 37 (60-); Glucose, Blood 122 mg/dL (70-99); Magnesium, Blood 2.3 mg/dL (1.6-2.4); Potassium, Blood 3.3 mmol/L (3.5-5.5); Sodium, Blood 143 mmol/L (136-145); Triglycerides 89 mg/dL (30-160)
--- NOTE | 2022-05-02 05:55 | NUR ---
SHIFT SUMMARY NO ACUTE CHANGES DURING NOC. REMAINS INTUBATED- AC/VC+ 14/500/5/30%. SEDATED WITH PROPOFOL AT 35MCG/KG/MIN. NO NEURO CHANGES. MOVES EXTREMITIES, BUT NOT FOLLOWING COMMANDS. SHAKES HEAD "NO" FREQUENTLY WHEN RN PROVIDING CARE. BILATERAL SOFT WRIST RESTRAINTS REMAIN IN PLACE. MONITOR SHOWS NSR, RATE 80s-90s DURING NOC. BP STABLE. TMAX 99.5F. DOBHOFF PATENT WITH VHP AT GOAL RATE OF 10ML/HR. BOONE PATENT AND DRAINING TO GRAVITY. ONE EPISODE OF BOONE LEAKING LARGE AMOUNT OF URINE. RECTAL TUBE IN PLACE WITH SMALL AMOUNT OF LIQUID BROWN STOOL. CPN INFUSING AT 55ML/HR PER ORDER. REMAINS IN DROPLET ISOLATION. WILL REPORT TO ONCOMING RN WHEN AVAILABLE.
--- NOTE | 2022-05-02 07:45 | NUR ---
[facility] of Care: Care assumed at 0700hr. Patient intubated and sedated with propofol gtt at 35mcg/kg/min. Patient opens eyes to verbal commands, nods head yes/no appropriately, otherwise not following any commands. Withdraws all extremities to noxious stimuli, positive gag and cough reflex. Vent to AC 14/500/5/30%, spO2- 93%, tolerating vent without difficulty, VSS. PICC to HELLEN patent and intact. Bagley cath patent and intact. Dobhoff to rt nare, with TF at trickle rate of 10ml/hr, no s/s of GI intolerance. Will discuss obtaining chest and ABD x-ray this morning with Dr. Abreu r/t patient's recent history of intolerance to TF. Will also discuss spontaneous breathing trail with sedation vacation. Rectal tube in place with liquid brown stool in tubing, minimal output per NOC shift RN, plan to remove rectal tube this morning. Bilateral soft wrist restraints in place to protect lines, tubes, cords. Will continue to monitor.
--- NOTE | 2022-05-02 11:07 | NUR ---
Failed Spontaneous Breathing Trial: Propofol gtt decreased from 35mcg/kg/min to 15mcg for approx 20min. Patient became alert, following commands, calm. Propofol then stopped and Dr. Abreu called to room. Patient then placed on PS of 10/5/30%. Patient began trial well, with respiratory rate in the high 20's. Approx 2-3min into trial, patient became tachypneic with rate in the high 40's to 50's, with tidal volumes in the low 200's. Dr. Abreu called back to room, and patient placed back on AC/VC mode, with quick resolution of tachypnea. Propofol gtt resumed at 15mcg, patient appears calm and comfortable, following simple commands. Will continue to monitor.
--- NOTE | 2022-05-02 12:38 | NUR ---
Pt resting in bed with eyes opened and intubated. Primary RN Jj offering antianxiety medication. Pt did not do well with weaning trial. Plan for weaning trial tomorrow with a little more support. Offered brief supportive voice to Pt. Palliative Care will remain available
--- NOTE | 2022-05-02 18:24 | NUR ---
Shift Summary: No significant changes for remainder of shift (see previous notes). VS remain stable, tolerating vent without difficulty. TF increased from 10ml to 20ml/hr, no s/s of GI intolerance. Large amount of thick ET secretions throughout shift, but ventilating + oxygenating wnl. Appears uncomfortable, restless with cares, otherwise calm and comfortable when not stimulated by staff. Rectal tube removed this morning, no further BM's. Will monitor until report to NOC shift RN.
--- NOTE | 2022-05-02 19:00 | NUR ---
ASSUMED CARE ASSUMED CARE OF PATIENT. ASSUMED CARE OF PATIENT. REMAINS INTUBATED- AC/VC+ 14/500/5/30%. RR 15-18. SEDATED WITH PROPOFOL AT 3OMCG/KG/MIN. OPENS EYES TO VERBAL STIMULI. SQUEEZES HANDS AND WIGGLES TOES TO COMMAND. NODS/SHAKES HEAD YES/NO SEEMINGLY APPROPRIATELY. DENIES PAIN AT THIS TIME. REACHES FOR ETT WITH LEFT HAND WHEN RESTRAINTS LOOSENED. SHAKES HEAD "NO" AGGRESSIVELY WHEN RN MENTIONS REPOSITIONING. MONITOR SHOWS NSR, RATE 70s. BP STABLE. TEMP 99.1F PER BOONE TEMP PROBE. DOBHOFF NOTED- VHP AT 20ML/HR- GOAL RATE 40ML/HR. 30ML H20 Q4H FOR TUBE PATENCY. BOONE PATENT AND DRAINING TO GRAVITY. SEE SHIFT ASSESSMENT FOR FULL ASSESSMENT,
[2022-05-03 04:14] LABS: Base Excess Venous 14.2 mmol/L; Bicarbonate Venous 35.8 mmol/L (24.0-30.0); PCO2 Venous 52.3 mmHg (38-42); pH Blood Venous 7.47 (7.34-7.37)
[2022-05-03 04:22] LABS: BASOPHILS ABSOLUTE AUTO 0.02 K/mm3 (0.00-0.23); BASOPHILS PERCENT AUTO 0 % (0-2); EOSINOPHILS ABSOLUTE AUTO 0.18 K/mm3 (0.00-0.68); EOSINOPHILS PERCENT AUTO 3 % (0-6); Hematocrit 28.2 % (37.0-53.0); Hemoglobin 9.7 g/dL (13.5-17.5); IMMATURE GRAN ABSOLUTE AUTO 0.03 K/mm3 (0.00-0.10); IMMATURE GRAN PERCENT AUTO 0 % (0-1); LYMPHOCYTES ABSOLUTE AUTO 0.72 K/mm3 (0.84-5.20); LYMPHOCYTES PERCENT AUTO 11 % (21-46); MONOCYTES ABSOLUTE AUTO 0.39 K/mm3 (0.16-1.47); MONOCYTES PERCENT AUTO 6 % (4-13); Mean Corpuscular HGB 30.2 pg (26.0-34.0); Mean Corpuscular HGB Conc 34.4 g/dL (31.5-36.5); Mean Corpuscular Volume 88 fL (80-100); NEUTROPHILS ABSOLUTE AUTO 5.44 K/mm3 (1.96-9.15); NEUTROPHILS PERCENT AUTO 80 % (41-73); Platelet Count 288 K/mm3 (150-400); RDW Coefficient Variation 14.6 % (11.7-14.2); RDW Standard Deviation 46.4 fL (35.1-46.3); Red Blood Cell Count 3.21 M/mm3 (4.30-5.90); White Blood Cell Count 6.78 K/mm3 (4.00-11.30)
[2022-05-03 04:41] LABS: Magnesium, Blood 2.3 mg/dL (1.6-2.4)
[2022-05-03 04:42] LABS: Albumin, Blood 2.1 g/dL (3.4-5.0); Anion Gap 6 mmol/L (6-16); Blood Urea Nitrogen 81 mg/dL (8-24); Bun/Creatinine Ratio 46.8 (12.0-20.0); CO2, Blood 36 mmol/L (21-32); Calcium, Blood 9.2 mg/dL (8.5-10.1); Chloride, Blood 104 mmol/L (98-108); Creatinine, Blood 1.73 mg/dL (0.60-1.20); Glomerular Filtration Rate 43 (60-); Glucose, Blood 112 mg/dL (70-99); Phosphorus, Blood 3.6 mg/dL (2.5-4.9); Potassium, Blood 3.3 mmol/L (3.5-5.5); Sodium, Blood 146 mmol/L (136-145)
--- NOTE | 2022-05-03 06:31 | NUR ---
SHIFT SUMMARY NO ACUTE CHANGES DURING NOC. REMAINS INTUBATED. SBT DONE THIS AM- SEE RT DOCUMENTATION. SEDATED WITH PROPOFOL BETWEEN 5-40MCG/KG/MIN. NOW INFUSING AT 30MCG/KG/MIN. PT OPENS EYES, SHAKES/NODS HEAD APPROPRIATELY. DENIES C/O PAIN OR DISCOMFORT T/O SHIFT. FOLLOWS SIMPLE COMMANDS. REACHES FOR ETT TUBE WHEN RESTRAINTS LOOSENED/OFF. BILATERAL SOFT WRIST RESTRAINTS REMAIN IN PLACE. VSS. NSR, RATE 70s. TMAX 99.1F. DOBHOFF WITH VITAL HIGH PROTEIN AT 30ML/HR (GOAL IS 40ML/HR). BOONE PATENT AND DRAINING TO GRAVITY. WILL REPORT TO ONCOMING RN WHEN AVAILABLE.
--- NOTE | 2022-05-03 09:33 | NUR ---
ASSUMED CARE OF PATIENT AT 0700, HE HAS BEEN ALERT AND FOLLOWING COMMANDS. HE NODS AND SHAKES HIS HEAD HE ANSWERS. HE SHIMMIES AND WIGGLES AFTER BEING REPOSITIONED. HE CONTINUES ON THE VENTILATOR, LUNG SOUNDS GOOD, PT COUGH IS HARSH. HIS RETURN IS WHITE/ALBARRAN THICK. 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 RIGHT ARM ECCHYMOTIC AND SWOLLEN, LARGER THAN THE LEFT. DENIES ANY DISCOMFORT IN THE ABDOMEN, TUBE FEEDING INCREASED FROM 30 TO 40ML WHICH IS GOAL RATE. BOONE TO GRAVITY DRAINAGE.
--- NOTE | 2022-05-03 14:35 | NUR ---
YOLIS REMAINS UP IN THE RECLINER CHAIR, HE IS MOVING HIS LEGS AND REPOSITIONING HIMSELF WHILE IN THE CHAIR. HE IS RESTING QUIETLY AND COUGHS OCCASIONALLY.
--- NOTE | 2022-05-03 18:15 | NUR ---
YOLIS IS BACK IN BED THIS EVENING. HE HAD A LARGE BM WHILE IN THE RECLINER AND DID FAIRLY WELL WITH THE CLEAN UP AND RETURN TO BED. HE WAS COUGHING QUITE A BIT AND RETURNED QUITE A BIT OF SALIVA. HE WAS ORALLY SUCTIONED WHICH HE SHOOK HIS HEAD VEHEMENTLY TO TRY TO AVOID. REASSURANCE GIVEN. HE HAS REMAINED ON THE VENT T/O THE SHIFT WITH THE SAME SETTINGS. HE HAS BEEN HAVING QUITE A FEW COUGHING FITS BUT RECOVERS WELL AND DOESN'T DROP HIS SATS. HE DOES TRY TO REACH UP AND GRAB AT THE ETT WITH HIS LEFT HAND WHEN IT IS UNRESTRAINED. HE IS RESTING QUIETLY OF THIS WRITING. TOLERATING HIS TUBE FEEDING WELL WITHOUT EVIDENCE OF REGURGITATION. WILL CONTINUE TO MONITOR AND REPORT OFF WHEN ABLE.
--- NOTE | 2022-05-04 02:37 | NUR ---
ASSUMED CARE ASSUMED CARE AT 1900. PT INTUBATED AND SEDATED. AC/VC 14/500/5/30%. RR 14-18. PINK/WHITE ETT SECRETIONS. PROPOFOL GTT INFUSING. SEE FLOWSHEET FOR TITRATIONS. PT RESPONDS TO VERBAL STIMULI. NODS HEAD YES/NO TO QUESTIONS. FOLLOWS COMMANDS. MOVES ALL EXTREMITIES SPONTANEOUSLY. SHAKES HEAD NO TO PAIN. SR RATE 70'S. SBP 100-110. VSS. DOBBHOFF IN PLACE W/ TF AT GOAL. BOONE PATENT AND DRAINING TO GRAVITY.
[2022-05-04 03:20] LABS: Hemoglobin 9.8 g/dL (13.5-17.5)
[2022-05-04 03:38] LABS: Magnesium, Blood 2.2 mg/dL (1.6-2.4)
[2022-05-04 03:40] LABS: Albumin, Blood 2.1 g/dL (3.4-5.0); Blood Urea Nitrogen 69 mg/dL (8-24); Bun/Creatinine Ratio 49.3 (12.0-20.0); Calcium, Blood 8.6 mg/dL (8.5-10.1); Chloride, Blood 110 mmol/L (98-108); Glomerular Filtration Rate 55 (60-); Glucose, Blood 119 mg/dL (70-99); Phosphorus, Blood 3.5 mg/dL (2.5-4.9); Potassium, Blood 3.1 mmol/L (3.5-5.5); Sodium, Blood 146 mmol/L (136-145)
--- NOTE | 2022-05-04 04:38 | NUR ---
SBT PROPOFOL TITRATED DOWN AND OFF AT 0420. PT ALERT, AND FOLLOWING DIRECTIONS. SBT STARTED AT 0435. SPONT 15/8 30% FIO2. RR 10-14. TV 600-800. HR 80'S. SBP 120'S. SPO2 GREATER THAN 94%. MOVING BLE SPONTANEOUSLY. DENIES PAIN.
--- NOTE | 2022-05-04 06:15 | NUR ---
SHIFT SUMMARY PT REMAINS ON SPONT. PROPOFOL REMAINS OFF. PT TOLERATING WELL. PT CALM AND COOPERATIVE. FOLLOWING DIRECTIONS. RESTLESS AT TIMES. VSS. DOBBHOFF W/ TF AT GOAL. BOONE PATENT AND DRAINING TO GRAVITY. PT HAD TWO BM'S THIS SHIFT. DAUGHTER IN THIS AM TO SEE PT. CALL MADE TO HOSP REGARDING MORNING LABS. ORDERS RECEIVED.
--- NOTE | 2022-05-04 09:44 | NUR ---
YOLIS IS ALERT AND COOPERATIVE, HE IS FOLLOWING COMMANDS AND MORE ENGAGING THAN YESTERDAY. HE IS ABLE TO ASSIST IN POSITIONING, RESPONDING WELL WITH NOT REACHING FOR TUBE WHEN RESTRAINTS OFF FOR CARE AND RESPOSITION, TOLERATED ORAL CARE BETTER THIS MORNING, MORE COOPERATIVE. HE CONTINUES ON SPONTANEOUS AND HASN'T HAD ANY PROBLEMS WITH SUCH. WILL CONTINUE TO MONITOR, HOPING TO GET HIM EXTUBATED TODAY.
[2022-05-04 10:45] LABS: Anion Gap 4 mmol/L (6-16); CO2, Blood 32 mmol/L (21-32)
--- NOTE | 2022-05-04 11:53 | NUR ---
ASSUMED CARE REPORT RECEIVED FROM ZULLY AT 1030. PT RESTING IN BED, EYES OPEN, FOLLOWS COMMANDS. PROPOFOL INFUSING AT 10MCG/KG/MIN. VENTILATED ON PRESSURE SUPPORT OF 10 WITH PEEP 5. PT WAS DOING WELL UNTIL HE HAD A COUGHING FIT. SM AMT OF THICK RED/ALBARRAN SPUTUM SUCTIONED. RR UP IN THE 30S AND TAKING VOLUMES OF 200-250ML. PT HAD A BM SO CLEANED HIM UP AND PT CONTINUED WITH RR IN THE 30-40S AND PULLING VOLUMES AROUND 200ML DESPITE REDIRECTION TO SLOW BREATHS AND TAKE DEEPER BREATHS. PT DENIES SHORTNESS OF BREATH. AFTER PT CLEANED UP HIS RATE REMAINED HIGH SO FENTANYL GIVEN. DR. SIMMONS CAME AND TURNED PRESSURE UP TO 15. PT NOW RESTING WITH EYES CLOSED WITH RR 10-15 AND VOLUMES AROUND 600ML. TUBE PT MAINTAINED SPO2 ABOVE 92% THROUGHOUT. SR WITH RATE IN THE 80S, BP STABLE. TOELRATING TF VIA DOBHOFF. BOONE DRAINING YELLOW URINE. CONTINUING TO MONITOR.
--- NOTE | 2022-05-04 13:39 | NUR ---
DR. SIMMONS TURNED PT'S PRESSURE SUPPORT DOWN TO 10 FROM 15 AND WITHIN 5 MINUTES PT'S RR WENT UP TO THE HIGH 30S AND VOLUMES DROPPED TO AROUND 200ML. DR. SIMMONS NOTIFIED AND GAVE ORDERS TO INCREASE PRESSURE BACK TO 15.
--- NOTE | 2022-05-04 14:26 | NUR ---
RESUMED CARE AT 1345, PT STARING, SLIGHTLY RESTLESS. ASKED IF HE WOULD LIKE TO GET IN CHAIR. PT MOVED TO RECLINER WITH ASSISTANCE OF RT JOSUÉ.
--- NOTE | 2022-05-04 16:53 | NUR ---
YOLIS CONTINUES TO MOTION THAT HE WOULD LIKE SOMETHING TO DRINK. HE IS VISIBLY UPSET WHEN HE IS NOT ABLE TO HAVE ANYTHING. HE IS DROOLING QUITE A BIT THIS AFTERNOON. ENCOURAGED TO SWALLOW AND EXERCISE HIS MOUTH AND THROAT IN PREPARA- TION FOR EXTUBATION. AT BEDSIDE.
--- NOTE | 2022-05-04 18:06 | NUR ---
YOLIS HAS BEEN ON SPONTANEOUS MODE WITH THE VENTILATOR ALL DAY LONG. HIS PRESSURE SUPPORT HAS BEEN ADJUSTED BY T/O THE DAY. HE HAS NOT TOLERA- DARLIN THE LOWER PRESSURES, BY HAVING TACHYPNEA AND LOW VOLUMES. HE WAS MOVED TO THE RECLINER THIS AFTERNOON, VISITED BY HIS AND HAS BEEN ENGAGING WITH THE STAFF TO THE BEST OF HIS ABILITY. HE IS THIRSTY AND CONTINUES TO ASK FOR WATER OR SOMETHING TO DRINK. HIS WRISTS REMAIN IN RESTRAINTS TO KEEP HIM FROM PULLING ON HIS ETT. HE HAS RED TINGED RETURN UPON SUCTIONING. HIS COUGH REMAINS HARSH AND HACKING. RIGHT ARM REMAINS LARGER AND MORE ECCHYMOTIC THAN THE LEFT. WILL CONTINUE TO MONITOR AND TREAT, REPORTING OFF TO NEXT SHIFT WHEN ABLE.
--- NOTE | 2022-05-04 23:06 | NUR ---
ASSUMED CARE ASSUMED CARE AT 1900. PT INTUBATED AND SEDATED. INITIALLY ON SPONTANEOUS. DURING BEDSIDE REPORT, VENT ALARMED APNEIC WHILE PT WAS SLEEPING. PROPOFOL AT 10MCG. RT SWITCHED PT TO AC/VC 14/500/5/30%. SR 70'S. SBP 120'S. VSS. PT IN CHAIR. ALERT AND FOLLOWING DIRECTIONS. SHAKES HEAD YES/NO TO QUESTIONS. PT GIVEN BATH AND TRANSFERRED BACK TO BED APPROX 2100. PROPOFOL INCREASED TO 30MCG D/T PT RESTLESSNESS. DOBBHOFF IN PLACE W/ TF AT GOAL. BOONE PATENT AND DRAINING TO GRAVITY.
[2022-05-05 03:28] LABS: Hematocrit 27.3 % (37.0-53.0); Hemoglobin 9.2 g/dL (13.5-17.5); Mean Corpuscular HGB 30.5 pg (26.0-34.0); Mean Corpuscular HGB Conc 33.7 g/dL (31.5-36.5); Mean Corpuscular Volume 90 fL (80-100); Mean Platelet Volume 11.7 fL (9.1-12.4); Platelet Count 318 K/mm3 (150-400); RDW Coefficient Variation 14.8 % (11.7-14.2); RDW Standard Deviation 48.7 fL (35.1-46.3); Red Blood Cell Count 3.02 M/mm3 (4.30-5.90); White Blood Cell Count 6.39 K/mm3 (4.00-11.30)
[2022-05-05 04:01] LABS: Albumin, Blood 2.1 g/dL (3.4-5.0); Anion Gap 1 mmol/L (6-16); Blood Urea Nitrogen 56 mg/dL (8-24); Bun/Creatinine Ratio 47.5 (12.0-20.0); CO2, Blood 33 mmol/L (21-32); Calcium, Blood 8.5 mg/dL (8.5-10.1); Chloride, Blood 116 mmol/L (98-108); Creatinine, Blood 1.18 mg/dL (0.60-1.20); Glomerular Filtration Rate 68 (60-); Glucose, Blood 118 mg/dL (70-99); Magnesium, Blood 2.2 mg/dL (1.6-2.4); Potassium, Blood 3.2 mmol/L (3.5-5.5); Sodium, Blood 150 mmol/L (136-145)
--- NOTE | 2022-05-05 05:45 | NUR ---
SHIFT SUMMARY NO ACUTE EVENTS T/O NIGHT. PT REMAINS INTUBATED AND SEDATED. NO VENT SETTINGS CHANGED. PROPOFOL GTT INFUSING. SEE FLOWSHEET FOR TITRATIONS. NO SBT DONE PER DR SIMMONS. VSS, BP SOFT AT TIMES. MAP GREATER THAN 65. DOBBHOFF AT 68CM. LAST DOCUMENTED WAS 75CM. DR SIMMONS NOTIFIED AND WILL CHECK PLACEMENT AFTER MORNING XRAY. NO S/S OF ASPIRATION. DR SIMMONS APPROVED TO CONTINUE TF AND OBSERVE FOR S/S OF ASPIRATION. DR HUIZAR NOTIFIED OF MORNING LABS AND ORDERS RECEIVED. PAOLO PATENT AND DRAINING TO GRAVITY. DAUGHTER AT BEDSIDE THIS AM.
--- NOTE | 2022-05-05 08:00 | NUR ---
INITIAL ASSESSMENT PATIENT INTUBATED AND ON SEDATION. PATIETN RESPONDS TO VERBAL STIMULI AND ABLE TO FOLLOW SIMPLE COMMANDS AND NOD/ SHAKE HEAD TO ANSWER YES AND NO QUESTIONS. PATIENT WEAK BUT ABLE TO MOVE ALL EXTREMITIES. PATIENT AFEBRILE. PATIENT DENIES PAIN. LUNGS CLEAR THROUGHOUT. PATIENT ON VENT SETTINGS OF ACVC 14, TV 500, PEEP 5 AND 30% FIO2. MODERATE AMOUNT OF THIN, BLOODY SECRETIONS SUCTIONED FROM ETT. PATIENT IN SR, HR IN THE 70S. SBP IN THE LOW 100S. R UPPER ARM AND R HAND EDEMATOUS. DOBHOFF IN PLACE. VHP INFUSING AT GOAL RATE OF 40 MLS/ HOUR WITH 30 ML WATER FLUSH Q4H. LAST BM DOCUMENTED YESTERDAY. BOONE DRAINING YELLOW COLORED URINE. COCCYX WOUND WITH MEPILEX IN PLACE. BRUISES SCATTERED. D5 AT 50 MLS/ HOUR AND PROPOFOL AT 30 MCG/ KG/ MINUTE. BED LOW, CALL LIGHT IN REACH. WILL CONTINUE TO MONITOR PATIENT FREQUENTLY THROUGHOUT SHIFT.
[2022-05-05 10:00] LABS: Vancomycin, Trough 17.1 ug/mL (5.0-10.0)
--- NOTE | 2022-05-05 10:52 | NUR ---
Pt resting in bed with his eyes opened, alert, and intubated. Offered brief supportive visit. Discussed case with Primary RN Jantet and reviewed plan of care.
--- NOTE | 2022-05-05 12:15 | NUR ---
PATIENT REMAINS INTUBATED. PROPOFOL ON SB. VENT ON SPONTANEOUS PRESSURE SUPPORT OF 15, PEEP 5 AND FIO2 30%. SPUTUM NOT RED AND CLEAR IN COLOR. HR IN THE 90S. SBP IN THE LOW 100S. BLOOD SUGAR 106. PATIENT DENIES PAIN. CALL LIGHT IN REACH. WILL CONTINUE TO MONITOR.
[2022-05-05 12:47] LABS: Potassium, Blood 3.7 mmol/L (3.5-5.5)
--- NOTE | 2022-05-05 16:30 | NUR ---
PATIENT HAS TEMP OF 99.0 DEGREES FAHRENHEIT. HR 80S TO 90S. SBP IN THE 120S. PATIENT BACK ON ACVC 14, TV 500, PEEP 5 AND 30% FIO2. COMPLETE BED BATH GIVEN AND PATIENT BACK TO BED. PATIENT DENIES PAIN. CALL LIGHT IN REACH. WILL CONTINUE TO MONITOR.
[2022-05-05 18:55] LABS: Potassium, Blood 3.5 mmol/L (3.5-5.5)
--- NOTE | 2022-05-05 19:10 | NUR ---
SHIFT SUMMARY PATIENT REMAINED INTUBATED. PROPOFOL TURNED ON SB THIS SHIFT FOR SEDATION VACATION AND WEAN. PATIENT REMAINS ON SB AT THIS TIME PER PATIENT REQUEST. PATIENT HAD TMAX OF 99.2 DEGREES FAHRENHEIT THIS SHIFT. PATIENT DENIED PAIN ALL SHIFT. PATIENT REMAINED FOLLOWING SIMPLE COMMANDS AND MOVING ALL EXTREMITIES. PATIENT ON SPONTANEOUS PRESSURE SUPPORT 15 AND INCREASED TO 18 THIS SHIFT; PEEP 5 AND FIO2 30%. PATIENT PLACED BACK ON ACVC SETTINGS BY DR. SIMMONS PATIENT INDICATED HE WANTED A BREAK. PATIENT REMAINED IN SR, HR 70S TO 90S. SBP 90S TO 130S. EDEMA IMPROVING IN R ARM AND HAND. FLUSH TO DOBHOFF INCREASED TO 250 MLS Q6H FOR SODIUM OF 150 THIS SHIFT. PATIENT HAD BM SMEAR THIS SHIFT. BOONE DRAINED 1150 MLS OF YELLOW COLORED URINE. NO CHANGES TO SKIN NOTED. PATIENT UP TO CHAIR WITH LIFT THIS SHIFT. D5 INCREASED TO 75 MLS/ HOUR. CHLORHEXADINE BATH GIVEN THIS SHIFT. BLOOD SUGARS 106 AND 114. BED LOW, CALL LIGHT IN REACH. REPORT HAS BEEN GIVEN TO ASSUMING DETASSELER NURSE.
--- NOTE | 2022-05-05 20:09 | NUR ---
ASSUMED CARE ASSUMED CARE AT 1900. PT INTUBATED AND OFF SEDATION. AC/VC 14/500/5/30%. RR 14-18. PT ALERT, AND WATCHING TV. NODS/SHAKES HEAD TO QUESTIONS. MOVES ALL EXTREMITIES SPONTANEOUSLY. DENIES PAIN. SR RATE 80'S. SBP 110'S. VSS. DOBBHOFF IN PLACE W/ TF AT GOAL. BOONE PATENT AND DRAINING TO GRAVITY. CALL LIGHT IN REACH. DAUGHTERS AT BEDSIDE THIS PM.
[2022-05-06 03:46] LABS: Hematocrit 28.4 % (37.0-53.0); Hemoglobin 9.5 g/dL (13.5-17.5); Mean Corpuscular HGB 30.5 pg (26.0-34.0); Mean Corpuscular HGB Conc 33.5 g/dL (31.5-36.5); Mean Corpuscular Volume 91 fL (80-100); Mean Platelet Volume 11.5 fL (9.1-12.4); Platelet Count 330 K/mm3 (150-400); RDW Coefficient Variation 14.9 % (11.7-14.2); RDW Standard Deviation 49.1 fL (35.1-46.3); Red Blood Cell Count 3.11 M/mm3 (4.30-5.90); White Blood Cell Count 6.79 K/mm3 (4.00-11.30)
[2022-05-06 05:54] LABS: Albumin, Blood 2.2 g/dL (3.4-5.0); Anion Gap 6 mmol/L (6-16); Blood Urea Nitrogen 44 mg/dL (8-24); Bun/Creatinine Ratio 40.4 (12.0-20.0); CO2, Blood 29 mmol/L (21-32); Calcium, Blood 8.4 mg/dL (8.5-10.1); Chloride, Blood 114 mmol/L (98-108); Creatinine, Blood 1.09 mg/dL (0.60-1.20); Glomerular Filtration Rate 74 (60-); Glucose, Blood 110 mg/dL (70-99); Magnesium, Blood 2.2 mg/dL (1.6-2.4); Potassium, Blood 3.3 mmol/L (3.5-5.5); Sodium, Blood 149 mmol/L (136-145)
--- NOTE | 2022-05-06 06:28 | NUR ---
SHIFT SUMMARY NO ACUTE EVENTS T/O NIGHT. NO VENT SETTING CHANGES. OFF SEDATION ALL NIGHT. PT SHOOK HEAD WHEN ASKED ABOUT PAIN, OR BEING UNCOMFORTABLE. PT ABLE TO SLEEP MOST OF SHIFT. VSS. DR HUIZAR AT BEDSIDE THIS AM AND NOTIFIED OF LABS. ORDERS RECEIVED. ROGERIO W/ TF AT GOAL. BOONE PATENT AND DRAINING TO GRAVITY. NO BM THIS SHIFT.
--- NOTE | 2022-05-06 08:39 | NUR ---
INITIAL ASSESSMENT PT INTUBATED. NOT ON SEDATION. PT FOLLOWING SIMPLE COMMANDS AND NODDING HEAD TO ANSWER YES AND NO QUESTIONS. PT WEAK BUT ABLE TO MOVE ALL EXTREMITIES. PT AFEBRILE. PT DENIES PAIN. PT ON SPONTANEOUS PRESSURE SUPPORT 17/4 FiO2 30%. MODERATE AMOUNT OF THIN PINK CLEAR SECRETIONS BEING SUCTIONED FROM ETT. LUNGS CLEAR. PT IN SINUS RHYTHM. HEART IN 70-80'S. SBP IN THE 120'S. RIGHT ARM AND HAND EDEMATOUS. TUBE FEED INFUSING THROUGH DOBHOFF AT GOAL RATE. 250ML WATER FLUSH Q4. BOONE DRAINING YELLOW COLORED URINE. PT BEING TURNED Q2 HRS. D5 INFUSING AT 75ML/HR. 30MEQ KCL INFUSING FOR POTASSIUM OF 3.3 THIS AM. BED LOW, CALL LIGHT IN REACH. WILL CONTINUE TO MONITOR PT FREQUENTLY THROUGHOUT SHIFT.
[2022-05-06 10:08] LABS: Vancomycin, Trough 17.5 ug/mL (5.0-10.0)
--- NOTE | 2022-05-06 10:45 | NUR ---
PATIENT EXTUBATED. PATIENT PLACED ON 3 L NC. PATIENT HAS NO COMPLAINTS AT THIS TIME. WILL CONTINUE TO MONITOR.
--- NOTE | 2022-05-06 12:00 | NUR ---
PATIENT ALERT AND ORIENTED. DENIES PAIN. TEMP OF 99.2 DEGREES FAHRENHEIT. HR IN THE 80S. SBP IN THE 120S. PATIENT SATTING 90% AND GREATER ON 1 L NC. SPEECH RASPY. BLOOD SUGAR 100. PATIENT TO CHAIR WITH LIFT. NO OTHER ACUTE CHANGES TO NOTE ON AT THIS TIME. CALL LIGHT IN REACH.
[2022-05-06 13:28] LABS: Potassium, Blood 3.6 mmol/L (3.5-5.5)
--- NOTE | 2022-05-06 17:20 | NUR ---
REASSESSMENT PATIENT SATTING >90% ON ROOM AIR. SBP IN 130-150'S. HR STILL IN 80'S. CHG BATH COMPLETE. BED LOW, CALL LIGHT WITHIN REACH, WILL CONTINUE TO MONITOR THROUGHOUT SHIFT.
--- NOTE | 2022-05-06 18:14 | NUR ---
END OF SHIFT SUMMARY PATIENT CALM AND COOPERATIVE. A&O X4. VOICE RASPY. DENIES PAIN. TEMP 99.2 DEGREES FAHRENHEIT. SUCCESSFULLY EXTUBATED AT 1045 AND REMAINS ON ROOM AIR SATTING ABOVE 90%. LUNG SOUNDS REMAIN CLEAR. HR IN THE 80'S TO LOW 90'S. SBP IN 120'S TO LOW 130'S. SINUS RHYTHM. CAP REFILL <3 SECONDS. EDEMA PRESENT ON RIGHT UPPER EXTREMITIY. EFFECTED EXTREMITIY ELEVATED ON PILLOW. PATIENT REMAINS NPO WITH DOBHOFF RUNNING AT GOAL RATE OF 40ML/HR. BOONE PATENT AND DRAINING DARK YELLOW URINE TO GRAVITY. 1100 ML URIEN OUT THIS SHIFT. SKIN PINK AND WARM TO THE TOUCH. COCCYX OPEN WITH OPTIFOAM DRESSING ON. PICC IN RIGHT UPPER ARM PATENT. D5 DECREASED FROM 75 TO 50ML THIS SHIFT. 30 MEQ KCL GIVEN THIS SHIFT. PT/OT WORKED WITH PT. PT OUT OF BED TO CHAIR. BED BATH COMPLETED. BED LOW, CALL LIGHT WITHIN REACH, WILL CONTINUE TO MONITOR.
--- NOTE | 2022-05-06 18:37 | NUR ---
I AGREE WITH STUDENT NURSE DOCUMENTATION AND NOTES.
[2022-05-06 18:43] LABS: Potassium, Blood 3.3 mmol/L (3.5-5.5)
--- NOTE | 2022-05-06 19:00 | NUR ---
ASSUMED CARE OF PT AT 1900 PT AWAKE LAYING IN BED. BP AND HR WNL. SINUS RHYTHM. BOONE DRAINING TO GRAVITY WITH CLEAR YELLOW URINE. TKO RUNNING AT 50 MLS/HR TO RIGHT UPPER ARM PICC. KCL ORDERED AND ON THE WAY FROM LAB. SEE FULL ASSESSMENT FOR FURTHER INFORMATION.
--- NOTE | 2022-05-06 22:54 | NUR ---
PT PULLED DOBHOFF OUT OF NOSE. TF AND WATER STOPPED AT THIS TIME.
[2022-05-07 05:12] LABS: Hematocrit 29.9 % (37.0-53.0); Hemoglobin 9.8 g/dL (13.5-17.5)
--- NOTE | 2022-05-07 05:36 | NUR ---
END OF SHIFT SUMMARY PT SLEPT MOST OF THE NIGHT. A/O X3. PT IS ABLE TO MAKE NEEDS KNOWN. DOES NOT USE CALL LIGHT. CARDIAC- SINUS RHYTHM SBP 140'S. HR 70'S-80'S. RESP- >90% ON RA. LUNGS SLIGHTLY COURSE BILATERALLY WITH DIMINISHED BASES. NON PRODUCTIVE COUGH. GI, - PT HAD 2 LOOSE BM'S THIS SHIFT. BOONE CATH DRAINING TO GRAVITY WITH CLEAR/YELLOW URINE PRESENT. DOBHOFF ACCIDENTLY PULLED OUT BY PT. ATTEMPT TO REINSERT NEW ONE MADE BY MULTIPLE RN'S. PT CURRENTLY DOES NOT HAVE ONE IN. TF HAS BEEN OFF SINCE WITH NO WATER FLUSHING.
--- NOTE | 2022-05-07 08:44 | NUR ---
AM NOTE... ASSUMED CARE OF PT AT 0700 THE PT IS A&Ox3 AND IS VERY [place]. THE PT'S VS STABLE THIS AM. HE IS IN SR W/PACs AND PVCs IN THE 80'S. THE PT HAS 2+ EDEMA NOTED TO HIS HELLEN, THIS IS ELEVATED ON PILLOWS. L/S COARSE WITH SCATTERED WHEEZES HE IS ON 2L NC WITH O2 SATS >95% HE TOLERATES RA WITH NO ACTIVITY, WITH ACTIVITY HE DESATS DOWN TO 87%. BT PRESENT AND HYPERACTIVE, ABD IS SOFT AND NONTENDER TO PALPATION. THE PT WAS EVALUATED BY SPEECH THIS AM AND GIVEN A MODIFIED DIET AND CLEARED TO TAKE HIS PO MEDS. DR. ARNOLD AT THE BEDSIDE TO EVALUATE THE PT, NEW ORDERS FOR MED W/TELE GIVEN. WILL CONTINUE TO MONITOR.
[2022-05-07 09:05] LABS: Albumin, Blood 2.2 g/dL (3.4-5.0); Anion Gap 7 mmol/L (6-16); Blood Urea Nitrogen 32 mg/dL (8-24); CO2, Blood 26 mmol/L (21-32); Calcium, Blood 8.1 mg/dL (8.5-10.1); Chloride, Blood 106 mmol/L (98-108); Creatinine, Blood 0.92 mg/dL (0.60-1.20); Glomerular Filtration Rate 91 (60-); Glucose, Blood 237 mg/dL (70-99); Magnesium, Blood 1.9 mg/dL (1.6-2.4); Phosphorus, Blood 2.6 mg/dL (2.5-4.9); Potassium, Blood 3.2 mmol/L (3.5-5.5); Sodium, Blood 139 mmol/L (136-145)
[2022-05-07 11:28] LABS: Albumin, Blood 2.2 g/dL (3.4-5.0); Albumin/Globulin Ratio 0.6 (0.8-1.8); Bilirubin, Total 0.8 mg/dL (0.1-1.0); Bun/Creatinine Ratio 35.4 (12.0-20.0); Calcium, Blood 8.1 mg/dL (8.5-10.1); Creatinine, Blood 0.93 mg/dL (0.60-1.20); Potassium, Blood 3.5 mmol/L (3.5-5.5); Total Protein, Blood 6.2 g/dL (6.4-8.2)
--- NOTE | 2022-05-07 11:32 | NUR ---
Spiritual Care Visit. Pt. is awake and sitting up in the chair when he welcomes my visit. Pt. is pleasant, but displays evidwence of being hard of hearing. Pt. verbalizes the question: " Can I go home?" With pastoral and a calming presence, seek to normalize the Pt. experience. Otherwise, the Pt. displays evidence of being alert. Prayed with Pt. Pt. verbalized gratitude for the spiritual care visit.
--- NOTE | 2022-05-07 17:39 | NUR ---
SHIFT SUMMARY... NO ACUTE NEGATIVE CHANGES NOTED THIS SHIFT. THE PT WORKED WITH PT/OT/ST AND WAS UP IN THE RECLINER MOST OF THIS SHIFT. THE PT HAS BEEN EATING WITH ASSISTANCE FROM STAFF. THE PT WAS ABLE TO TRANSFER HIMSELF BACK TO BE FROM THE CHAIR WITH FWW AND 1P ASSIST. THE PT HAS HAD 1 LOOSE, INCONT STOOL THIS SHIFT. THE PT'S AT THE BEDSIDE THIS AFTERNOON UPDATED ON THE PT'S CONDITON AND PLAN OF CARE. CALL LIGHT IN REACH WILL CONITNUE TO MONITOR UNTIL REPORT IS GIVEN TO ONCOMING RN.
--- NOTE | 2022-05-07 19:22 | NUR ---
ASSUMED CARE OF PT AT 1900 PT SLEEPING IN BED AT THIS TIME. NO VISITORS IN ROOM. BP 141/81, HR 80'S. BOONE DRAINING TO GRAVITY WITH CLEAR YELLOW URINE PRESENT. D5 50 RUNNING AT 50 MLS/HR. SEE FULL ASSESSMENT FOR FURTHER INFORMATION.
[2022-05-08 04:41] LABS: Bun/Creatinine Ratio 25.6 (12.0-20.0); Calcium, Blood 7.9 mg/dL (8.5-10.1); Creatinine, Blood 0.98 mg/dL (0.60-1.20); Potassium, Blood 3.2 mmol/L (3.5-5.5)
--- NOTE | 2022-05-08 06:17 | NUR ---
END OF SHIFT SUMMARY PT SLEPT THROUGHOUT THE NIGHT. A/O X3 VERY HARD OF HEARING. ---NO ACUTE CHANGES OVER NIGHT--- CARDIAC- BP AND HR WNL. RESP- SPO2 >90% ON RA. NON-PRODUCTIVE COUGH. GI,- BOONE PATENT AND DRAINING TO GRAVITY. NO BM THIS SHIFT. WILL CONTINUE TO MONITOR UNTIL SHIFT REPORT GIVEN TO AM RN.
--- NOTE | 2022-05-08 09:59 | NUR ---
ASSUMED CARE OF "YOLIS" JUST AFTER 08 THIS AM. HE ARRIVED FROM ICU ON ROOM AIR. HE DENIES ANY COMPLAINTS AT THIS TIME. HIS BREATHING IS NON LABORED, HE HAS AN OCC COUGH, NON PRODUCTIVE AT PRESENT. HE WAS ABLE TO TRANSFER WITH MINIMAL ASSIST TO THE PCU BED FROM THE ICU BED. HE WAS ABLE TO EAT SOME BREAKFAST AND SWALLOW HIS AM MEDS. HE HAS A BOONE TO GRAVITY DRAINAGE. PICC IN USE WITH POTASSIUM RIDER AND VANCOMYCIN INFUSIONS.
--- NOTE | 2022-05-08 10:31 | NUR ---
REPORT RECEIVED, ASSUMING PT CARE AT THIS TIME. UPON ROUNDING, PT ASLEEP. CALL LIGHT IN REACH
[2022-05-08 12:17] LABS: Albumin, Blood 2.3 g/dL (3.4-5.0); Anion Gap 5 mmol/L (6-16); Blood Urea Nitrogen 22 mg/dL (8-24); Bun/Creatinine Ratio 22.5 (12.0-20.0); CO2, Blood 29 mmol/L (21-32); Calcium, Blood 8.2 mg/dL (8.5-10.1); Chloride, Blood 108 mmol/L (98-108); Creatinine, Blood 0.98 mg/dL (0.60-1.20); Glomerular Filtration Rate 85 (60-); Glucose, Blood 99 mg/dL (70-99); Phosphorus, Blood 2.8 mg/dL (2.5-4.9); Potassium, Blood 4.3 mmol/L (3.5-5.5); Sodium, Blood 142 mmol/L (136-145)
--- NOTE | 2022-05-08 12:38 | NUR ---
DR. HUIZAR CALLED AT 1230 TO RELAY RENAL LABS, NO NEW ORDERS.
--- NOTE | 2022-05-08 18:33 | NUR ---
SUMMARY: A/O-[place], USING CALL LIGHT, VSS. SP02 ABOVE 90% ON RA WHILE AWAKE, NEEDS 1-2L O2 WHILE ASLEEP TO MAINTAIN SATS. NO COMPLAINTS TODAY, PT WORKED WITH THERAPY, SBA UP TO CHAIR X2. BOONE DRAINING WELL. R ARM EDEMA NOTED, PT DENIES N/T, ARM ELEVATED. ANTIBIOTICS INFUSED THIS AM, OTHERWISE PICC LINE WNL, SALINE LOCKED. NO ACUTE CONCERNS THIS SHIFT, WILL REPORT TO NOE COLLAZO.
[2022-05-09 04:48] LABS: Hematocrit 29.2 % (37.0-53.0); Hemoglobin 9.8 g/dL (13.5-17.5)
[2022-05-09 05:12] LABS: Albumin, Blood 2.2 g/dL (3.4-5.0); Anion Gap 2 mmol/L (6-16); Blood Urea Nitrogen 24 mg/dL (8-24); Bun/Creatinine Ratio 20.3 (12.0-20.0); CO2, Blood 30 mmol/L (21-32); Calcium, Blood 8.1 mg/dL (8.5-10.1); Chloride, Blood 108 mmol/L (98-108); Creatinine, Blood 1.18 mg/dL (0.60-1.20); Glomerular Filtration Rate 68 (60-); Glucose, Blood 102 mg/dL (70-99); Magnesium, Blood 1.9 mg/dL (1.6-2.4); Phosphorus, Blood 3.1 mg/dL (2.5-4.9); Potassium, Blood 3.6 mmol/L (3.5-5.5); Sodium, Blood 140 mmol/L (136-145); Triglycerides 117 mg/dL (30-160)
--- NOTE | 2022-05-09 05:39 | NUR ---
SHIFT SUMMARY ASSUMED CARE OF PT AT 1900. PT IS A/OX4. [place]. LUNG SOUNDS DIMINISHED. PT WORE 2L WHILE SLEEPING. HEART SOUNDS REGULAR. PT HAS A BOONE DRAINING WITH GRAVITY. PT EXPRESSES WANTING TO GO HOME. NO ACUTE EVENTS.
[2022-05-09 10:00] LABS: Vancomycin, Trough 17.5 ug/mL (5.0-10.0)
--- NOTE | 2022-05-09 18:05 | NUR ---
SHIFT SUMMARY PATIENT ALERT AND ORIENTED X4. HAD NO COMPLAINTS OF PAIN OR SHORTNESS OF BREATH. PATIENT TITRATED TO ROOM AIR. WORKED WELL WITH PT/OT. MOTIVATED TO GO HOME. NO ACUTE ISSUES NOTED. CALL LIGHT WITHIN REACH.
--- NOTE | 2022-05-10 05:14 | NUR ---
SHIFT SUMMARY ASSUMED CARE OF PT AT 1900. PT IS A/OX4 BUT [place]. LUNG SOUNDS HAVE CRACKLES IN THE L SIDE. PT HAD A MOIST COUGH. PT WORE 2L WHILE SLEEPING. CATHETER PULLED AT 0500. PT YET TO URINATE BUT BLADDER WAS EMPTY WHEN IT WAS TAKEN OUT. PT HAS BRUSING ALL T/O ABD FROM HEPRIN SHOTS. PT SLEPT WELL AND WANTS TO GO HOME.
[2022-05-10 07:48] LABS: Hematocrit 31.7 % (37.0-53.0); Hemoglobin 10.9 g/dL (13.5-17.5)
[2022-05-10 08:49] LABS: Albumin, Blood 2.4 g/dL (3.4-5.0); Anion Gap 5 mmol/L (6-16); Blood Urea Nitrogen 22 mg/dL (8-24); Bun/Creatinine Ratio 18.2 (12.0-20.0); CO2, Blood 28 mmol/L (21-32); Calcium, Blood 8.2 mg/dL (8.5-10.1); Chloride, Blood 107 mmol/L (98-108); Creatinine, Blood 1.21 mg/dL (0.60-1.20); Glomerular Filtration Rate 66 (60-); Glucose, Blood 102 mg/dL (70-99); Magnesium, Blood 1.8 mg/dL (1.6-2.4); Phosphorus, Blood 3.1 mg/dL (2.5-4.9); Potassium, Blood 3.8 mmol/L (3.5-5.5); Sodium, Blood 140 mmol/L (136-145)
[2022-05-10 10:25] LABS: Vancomycin, Trough 17.1 ug/mL (5.0-10.0)
[2022-05-10] MEDS ORDERED: ALBU2.5V5 INH (11:41)
--- NOTE | 2022-05-10 11:49 | NUR ---
WHILE TAKING A NAP PATIENT DESATURATED TO 87% THIS LASTED A COUPLE MINUTES UNTIL THE PATIENT WAS WOKEN UP AND REMINDED TO TAKE SOME DEEP BREATHS. THIS HAPPENED YESTERDAY EVENING WELL AND RESOLVED WITH PLACEMENT OF 2 LITERS OF O2 FOR SLEEP.
[2022-05-10] MEDS ORDERED: IPRAT-ALBUT 0.5-3 ML INH (12:54)
[2022-05-10] MEDS ORDERED: ASPI81CH PO (12:55)
[2022-05-10] MEDS ORDERED: FURO40 PO (12:59)
[2022-05-10] MEDS ORDERED: VISBIOME 112.51 EACH PO (13:01)
[2022-05-10] MEDS ORDERED: POTA10T PO (13:03)
[2022-05-10] MEDS ORDERED: SPIR25 PO (13:04)
== END 2022-05-10 14:06 | disposition home health service (06) | DRG 870 ==
LOC: ER 10:35 → PCU 13:36 → ICUW 13:36 → ICUE 13:36 → PCU 05-08 07:55
PROVIDERS: Emergency Medicine; Internal Medicine; Internal Medicine Critical Care Medicine; Internal Medicine Nephrology; Nurse Practitioner Acute Care; ADMIT Internal Medicine
PROC: 5A12012 Performance of Cardiac Output, Single, Manual (ICD-10-PCS; principal; 2022-04-24)
PROC: 5A1955Z Respiratory Ventilation, Greater than 96 Consecutive Hours (ICD-10-PCS; 2022-04-24)
PROC: 3E03329 Introduction of Other Anti-infective into Peripheral Vein, Percutaneous Approach (ICD-10-PCS; 2022-04-24)
PROC: 3E033XZ Introduction of Vasopressor into Peripheral Vein, Percutaneous Approach (ICD-10-PCS; 2022-04-24)
PROC: 02HV33Z Insertion of Infusion Device into Superior Vena Cava, Percutaneous Approach (ICD-10-PCS; 2022-04-24)
PROC: 03HY32Z Insertion of Monitoring Device into Upper Artery, Percutaneous Approach (ICD-10-PCS; 2022-04-24)
PROC: 4A133B1 Monitoring of Arterial Pressure, Peripheral, Percutaneous Approach (ICD-10-PCS; 2022-04-24)
PROC: 4A133J1 Monitoring of Arterial Pulse, Peripheral, Percutaneous Approach (ICD-10-PCS; 2022-04-24)
PROC: 0BH18EZ Insertion of Endotracheal Airway into Trachea, Via Natural or Artificial Opening Endoscopic (ICD-10-PCS; 2022-04-24)
PROC: 0DB68ZX Excision of Stomach, Via Natural or Artificial Opening Endoscopic, Diagnostic (ICD-10-PCS; 2022-04-29)
PROC: 0DB38ZX Excision of Lower Esophagus, Via Natural or Artificial Opening Endoscopic, Diagnostic (ICD-10-PCS; 2022-04-29)
DX: A41.01 Sepsis due to Methicillin susceptible Staphylococcus aureus (principal); G92.8 Other toxic encephalopathy; R65.21 Severe sepsis with septic shock; J96.01 Acute respiratory failure with hypoxia; J96.02 Acute respiratory failure with hypercapnia; I21.A1 Myocardial infarction type 2; I46.8 Cardiac arrest due to other underlying condition; J15.211 Pneumonia due to Methicillin susceptible Staphylococcus aureus; R57.1 Hypovolemic shock; N17.9 Acute kidney failure, unspecified; J44.0 Chronic obstructive pulmonary disease with (acute) lower respiratory infection; I47.20 Ventricular tachycardia, unspecified; E87.1 Hypo-osmolality and hyponatremia; K31.1 Adult hypertrophic pyloric stenosis; Z51.5 Encounter for palliative care; Z78.1 Physical restraint status; Z20.822 Contact with and (suspected) exposure to COVID-19; E86.0 Dehydration; F17.210 Nicotine dependence, cigarettes, uncomplicated; I12.9 Hypertensive chronic kidney disease with stage 1 through stage 4 chronic kidney disease, or unspecified chronic kidney disease; D50.9 Iron deficiency anemia, unspecified; E11.22 Type 2 diabetes mellitus with diabetic chronic kidney disease; J10.1 Influenza due to other identified influenza virus with other respiratory manifestations; N18.9 Chronic kidney disease, unspecified; D69.6 Thrombocytopenia, unspecified; E87.6 Hypokalemia; K31.84 Gastroparesis; B19.20 Unspecified viral hepatitis C without hepatic coma; E88.09 Other disorders of plasma-protein metabolism, not elsewhere classified; Z86.73 Personal history of transient ischemic attack (TIA), and cerebral infarction without residual deficits; Z79.51 Long term (current) use of inhaled steroids; Z79.899 Other long term (current) drug therapy
CPT/HCPCS: 0241U; 31500; 31720; 36415; 36556; 36569; 36600; 36620; 51702; 70450; 71045; 74018; 74176; 76770; 80048; 80053; 80069; 80202; 81001; 81050; 82330; 82550; 82553; 82803; 82947; 83516; 83520; 83605; 83735; 84100; 84132; 84156; 84166; 84295; 84478; 84484; 85014; 85018; 85025; 85027; 86037; 86038; 86334; 86335; 87040; 87070; 87077; 87086; 87147; 87186; 87205; 88305; 88342; 92526; 92610; 92950; 93005; 93010; 93306; 94002; 94003; 94640; 94660; 94664; 94760; 94762; 96365-59; 96367-59; 97110; 97116; 97162; 97166; 97530; 97535; 99285-25; A9270; C1751; C1752; C9113; J0171; J0282; J0456; J0610; J0696; J1430; J1644; J2060; J2250; J2370; J2704; J3010; J3370; J3475; J3480; J7030; J7040; J7050; J7060; J7070; J7120; P9045; P9047

== ENCOUNTER 2023-05-30 09:36 | Inpatient (IN) | payer OTHER ==
[~2023-05-30] VITALS: Ht 175.3 cm; Wt 65.8 kg
[~2023-05-30 09:36] MED LIST: ALBU2.5V5 INH; ALBU90OI INH; ASPI81CH PO; FURO40 PO; IPRAT-ALBUT 0.5-3 ML INH; IRON18 MG PO; POTA10T PO; Prinivil10 MG PO; SPIR25 PO; VISBIOME 112.51 EACH PO; Vitamin D1000 UNI1 PO
[2023-05-30 09:55] LABS: Chloride (POC) 99 mmol/L (98-108); Glucose (ISTAT POC) 113 mg/dL (70-99); Hemoglobin (POC) 19.7 g/dL (13.5-17.5); Potassium (POC) 5.3 mmol/L (3.5-5.5); Sodium (POC) 140 mmol/L (135-148); Total CO2 (POC) 34 mmol/L (21-32)
[2023-05-30] MEDS ORDERED: NS 500 ML IV SCH (10:00)
[2023-05-30 10:19] LABS: Base Excess Venous 5.7 mmol/L; Bicarbonate Venous 26.5 mmol/L (24.0-30.0); PCO2 Venous 59.7 mmHg (38-42); pH Blood Venous 7.33 (7.34-7.37)
[2023-05-30] MEDS ORDERED: TIOT18 INH (10:21)
[2023-05-30] MEDS ORDERED: CHLO25B PO (10:21)
[2023-05-30 10:22] LABS: BASOPHILS ABSOLUTE AUTO 0.08 K/mm3 (0.00-0.23); BASOPHILS PERCENT AUTO 1 % (0-2); EOSINOPHILS PERCENT AUTO 0 % (0-6); Hemoglobin 16.9 g/dL (13.5-17.5); IMMATURE GRAN ABSOLUTE AUTO 0.03 K/mm3 (0.00-0.10); IMMATURE GRAN PERCENT AUTO 0 % (0-1); LYMPHOCYTES ABSOLUTE AUTO 0.92 K/mm3 (0.84-5.20); LYMPHOCYTES PERCENT AUTO 8 % (21-46); MONOCYTES ABSOLUTE AUTO 0.54 K/mm3 (0.16-1.47); MONOCYTES PERCENT AUTO 4 % (4-13); Mean Corpuscular HGB 30.3 pg (26.0-34.0); Mean Corpuscular HGB Conc 32.5 g/dL (31.5-36.5); Mean Corpuscular Volume 93 fL (80-100); Mean Platelet Volume 12.2 fL (9.1-12.4); NEUTROPHILS ABSOLUTE AUTO 10.76 K/mm3 (1.96-9.15); NEUTROPHILS PERCENT AUTO 87 % (41-73); Platelet Count 188 K/mm3 (150-400); RDW Coefficient Variation 14.2 % (11.7-14.2); RDW Standard Deviation 48.9 fL (35.1-46.3); Red Blood Cell Count 5.57 M/mm3 (4.30-5.90); White Blood Cell Count 12.33 K/mm3 (4.00-11.30)
[2023-05-30 10:44] LABS: Albumin/Globulin Ratio 0.8 (0.8-1.8); Bun/Creatinine Ratio 17.9 (12.0-20.0); Calcium, Blood 8.9 mg/dL (8.5-10.1); Creatinine, Blood 1.96 mg/dL (0.60-1.20); Globulin, Blood 3.6 g/dL (2.2-4.0); Potassium, Blood 5.5 mmol/L (3.5-5.5); Total Protein, Blood 6.6 g/dL (6.4-8.2)
[2023-05-30] MEDS ORDERED: FLU VACC QS2023-24(6MOS UP)/PF 60 MCG/0.5 ML SYRINGE IM SCH (11:55)
[2023-05-30] MEDS ORDERED: Ipratropium/Albuterol SulF 2.5-0.5MG/3 ML Amp INH PRN (15:10)
[2023-05-30] MEDS ORDERED: Albuterol HFA200 ACT/6.7 GM INH INH PRN (15:15)
[2023-05-30 15:18] VITALS: BP 156/108
[2023-05-30] MEDS ORDERED: Lactated Ringer's 1,000 ML IV SCH (16:00)
--- NOTE | 2023-05-30 17:23 | NUR ---
ER ADMIT 1500: RECEIVED REORT FROM [facility] PROVIDER 1513: RECEIVED PT ON CORYRLUZ ELENA, PLACED IN BED, MADE COMFORTABLE, ORIENTED TO ROOM & UNIT ROUTINE. PIV'S IN BILAT AC'S, INTACT & PATENT. PT INC OF URINE. CLEAN BRIEFS PLACE ON PT. SKIN ASSESSMENT DONE. R ELBOW WITH QUARTER SIZED SKIN TEAR, MEPIPLEX PLACED. ASSORTED SCATTERED DRY SCABS ON PT'S ARMS AND A FEW ON LOWER EXT'S. PT REPLIED "YEAH" WHEN ASKED IF HE HAD A DOG. IS ON 4 L'S O2 WITH SATS >95%, TELE PLACED SHOWING SR WITH HR 84. PT DENIES PAIN. APPEARS TO NOD OFF WHEN NOT BEING STIMULATED, RESP ARE EVEN & UNLABORED, DOES HAVE A MOIST LOOSE COUGH, SEEMS TO BE CLEARING SECRETIONS WELL. NOTED TO HAVE L SIDED WEAKNESS, ARM & LEG. IS ABLE TO FOLLOW SIMPLE COMMANDS, NOT ABLE TO VERBALIZE BUT A FEW ONE WORD RESPONSES TO SIMPLE QUESTIONS SUCH , "YEAH", "NO", "UM" & "UH". IS ABLE TO SMILE & MAKES EYE CONTACT. SEEMS TO BE AWARE HE'S IN THE HOSPITAL. IS PLEASANT & COOPERATIVE WITH ALL CARE. CALL LIGHT WITHIN REACH , BED IN LOW POSITION. IS RESTING COMFORTABLY AT THIS TIME.
[2023-05-30 19:34] VITALS: BP 145/98
[2023-05-30] MEDS ORDERED: NS 1,000 ML IV SCH (21:05)
--- NOTE | 2023-05-31 04:36 | NUR ---
SHIFT SUMMARY ADMITTED FOR CVA. FULL CODE. IV FLUID INFUSING. PHYSICAL, OT, AND ST EVAL IS ORDERED. HE IS NPO. HE IS INCONTINENT. HE IS ON BEDREST. TELEMETRY: NSR @ 93 BPM. HE IS ON 4 LPM O2 HERE, RA @ BASELINE. COARSE COUGH NOTED. ONE WORD ANSWERS TO SIMPLE QUESTIONS ONLY.
[2023-05-31 04:39] VITALS: BP 147/99
[2023-05-31 06:28] LABS: BASOPHILS ABSOLUTE AUTO 0.09 K/mm3 (0.00-0.23); BASOPHILS PERCENT AUTO 1 % (0-2); EOSINOPHILS ABSOLUTE AUTO 0.02 K/mm3 (0.00-0.68); EOSINOPHILS PERCENT AUTO 0 % (0-6); Hematocrit 54.9 % (37.0-53.0); Hemoglobin 18.1 g/dL (13.5-17.5); IMMATURE GRAN ABSOLUTE AUTO 0.04 K/mm3 (0.00-0.10); IMMATURE GRAN PERCENT AUTO 0 % (0-1); LYMPHOCYTES PERCENT AUTO 6 % (21-46); MONOCYTES ABSOLUTE AUTO 0.52 K/mm3 (0.16-1.47); MONOCYTES PERCENT AUTO 4 % (4-13); Mean Corpuscular HGB 30.2 pg (26.0-34.0); Mean Corpuscular Volume 92 fL (80-100); Mean Platelet Volume 12.2 fL (9.1-12.4); NEUTROPHILS ABSOLUTE AUTO 12.01 K/mm3 (1.96-9.15); NEUTROPHILS PERCENT AUTO 89 % (41-73); Platelet Count 161 K/mm3 (150-400); RDW Coefficient Variation 14.3 % (11.7-14.2); RDW Standard Deviation 48.2 fL (35.1-46.3); Red Blood Cell Count 5.99 M/mm3 (4.30-5.90); White Blood Cell Count 13.48 K/mm3 (4.00-11.30)
[2023-05-31 06:53] LABS: Albumin, Blood 2.9 g/dL (3.4-5.0); Albumin/Globulin Ratio 0.8 (0.8-1.8); Bilirubin, Total 1.2 mg/dL (0.1-1.0); Bun/Creatinine Ratio 20.2 (12.0-20.0); Creatinine, Blood 1.68 mg/dL (0.60-1.20); Globulin, Blood 3.6 g/dL (2.2-4.0); Potassium, Blood 4.3 mmol/L (3.5-5.5); Total Protein, Blood 6.5 g/dL (6.4-8.2)
[2023-05-31 07:19] VITALS: BP 146/99
[2023-05-31] MEDS ORDERED: Aspirin 81 MG Chew PO SCH (09:00)
[2023-05-31] MEDS ORDERED: AmLODIPine Besylate 5 MG Tab PO SCH (09:00)
[2023-05-31] MEDS ORDERED: Enoxaparin 30 MG/0.3 ML SYR SC SCH (09:00)
[2023-05-31] MEDS ORDERED: Atorvastatin 40 MG Tab PO SCH (09:00)
[2023-05-31] MEDS ORDERED: Clopidogrel Bisulfate 75 MG Tab PO SCH (09:00)
[2023-05-31 15:39] VITALS: BP 109/70
--- NOTE | 2023-05-31 17:36 | NUR ---
SHIFT SUMMARY PATIENT ABLE TO PIECE TOGETHER SMALL SENTENCES INCONSISTENTLY THIS SHIFT. REQUIRES 4 LITERS 02. WAITING ON SPUTUM TO SEND SAMPLE TO LAB. ECHO DONE BUT NOT READ THIS SHIFT. ABLE TO FEED SELF. CARES ONGOING
[2023-05-31 20:15] VITALS: BP 116/70
--- NOTE | 2023-06-01 03:51 | NUR ---
Shift Summary: Mr. Cassidy is alert. It is difficult to determine his orientaton. He gives short one word answers to questions. He seems to be oriented to self, person, and situation. His respirations are regular and unlabored. He is on oxygen per nasal cannula at 4L. 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 He lives at home with his who is in a wheelchair. He will be going to a rehab facility at discharge. His bed is in low position with bed alarm on. Call light is in reach.
[2023-06-01 05:16] VITALS: BP 145/98
[2023-06-01 06:09] LABS: BASOPHILS ABSOLUTE AUTO 0.06 K/mm3 (0.00-0.23); BASOPHILS PERCENT AUTO 1 % (0-2); EOSINOPHILS ABSOLUTE AUTO 0.18 K/mm3 (0.00-0.68); EOSINOPHILS PERCENT AUTO 2 % (0-6); Hematocrit 50.5 % (37.0-53.0); Hemoglobin 16.9 g/dL (13.5-17.5); IMMATURE GRAN ABSOLUTE AUTO 0.04 K/mm3 (0.00-0.10); IMMATURE GRAN PERCENT AUTO 0 % (0-1); LYMPHOCYTES ABSOLUTE AUTO 1.02 K/mm3 (0.84-5.20); LYMPHOCYTES PERCENT AUTO 9 % (21-46); MONOCYTES PERCENT AUTO 6 % (4-13); Mean Corpuscular HGB 30.3 pg (26.0-34.0); Mean Corpuscular HGB Conc 33.5 g/dL (31.5-36.5); Mean Corpuscular Volume 91 fL (80-100); Mean Platelet Volume 11.9 fL (9.1-12.4); NEUTROPHILS ABSOLUTE AUTO 9.51 K/mm3 (1.96-9.15); NEUTROPHILS PERCENT AUTO 83 % (41-73); Platelet Count 126 K/mm3 (150-400); RDW Coefficient Variation 13.9 % (11.7-14.2); RDW Standard Deviation 46.4 fL (35.1-46.3); Red Blood Cell Count 5.57 M/mm3 (4.30-5.90); White Blood Cell Count 11.51 K/mm3 (4.00-11.30)
[2023-06-01 06:49] LABS: Albumin, Blood 2.6 g/dL (3.4-5.0); Albumin/Globulin Ratio 0.7 (0.8-1.8); Bilirubin, Total 1.2 mg/dL (0.1-1.0); Bun/Creatinine Ratio 25.6 (12.0-20.0); Calcium, Blood 8.2 mg/dL (8.5-10.1); Creatinine, Blood 1.33 mg/dL (0.60-1.20); Globulin, Blood 3.5 g/dL (2.2-4.0); Potassium, Blood 3.8 mmol/L (3.5-5.5); Total Protein, Blood 6.1 g/dL (6.4-8.2)
[2023-06-01 08:05] VITALS: BP 145/87
[2023-06-01 15:25] VITALS: BP 129/83
--- NOTE | 2023-06-01 17:53 | NUR ---
ASSUMPTION OF CARE NOTE: PATIENT IS ALERT, ONLY ANSWER "YEAH, HUH AND NO" WHEN ASKED TO QUESTIONS. PATIENT HAS R SIDED FLACCID AND L SIDED WEAKNESS. AT 1300 PATIENT WAS ON 4L O2 c SPO2 RANGES 99-100%, O2 TITRATED TO 2L c SPO2 IN THE HIGH 90'S. PER PATIENT USES 2L O2 AT HOME CONTINUOUSLY AND USES [employer]. LUNGS WHEEZY T/O TO AUSCULTATION. PATIENT ON TELE, SR HR IN THE LOW TO MID 70'S BPM. PATIENT DENIES CP/PRESSURE, N/V, DIZZINESS AND GENERALIZED PAIN, WHEN ASKED. PATIENT IS INCONTINENCE OF BOWELS/BLADDER, ATTENDS PLACED, CHANGED AND REPOSITIONED T/O SHIFT. PATIENT ON DROPLET ISOLATION FOR HX OF MRSA. VITAL SIGNS REVIEWED. PIV TO RAC/LAC SL. BED ALARM ON FOR SAFETY. CALL LIGHT IN REACH.
--- NOTE | 2023-06-01 18:24 | NUR ---
NOTE: ASSUMED CARE OF PATIENT AT 1300.
[2023-06-01 20:33] VITALS: BP 121/81
[2023-06-02 02:47] VITALS: BP 150/92
[2023-06-02 06:45] LABS: BASOPHILS ABSOLUTE AUTO 0.06 K/mm3 (0.00-0.23); BASOPHILS PERCENT AUTO 1 % (0-2); EOSINOPHILS ABSOLUTE AUTO 0.27 K/mm3 (0.00-0.68); EOSINOPHILS PERCENT AUTO 3 % (0-6); Hematocrit 51.6 % (37.0-53.0); Hemoglobin 17.1 g/dL (13.5-17.5); IMMATURE GRAN ABSOLUTE AUTO 0.02 K/mm3 (0.00-0.10); IMMATURE GRAN PERCENT AUTO 0 % (0-1); LYMPHOCYTES ABSOLUTE AUTO 0.75 K/mm3 (0.84-5.20); LYMPHOCYTES PERCENT AUTO 9 % (21-46); MONOCYTES ABSOLUTE AUTO 0.57 K/mm3 (0.16-1.47); MONOCYTES PERCENT AUTO 7 % (4-13); Mean Corpuscular HGB 29.8 pg (26.0-34.0); Mean Corpuscular HGB Conc 33.1 g/dL (31.5-36.5); Mean Corpuscular Volume 90 fL (80-100); Mean Platelet Volume 12.3 fL (9.1-12.4); NEUTROPHILS ABSOLUTE AUTO 6.97 K/mm3 (1.96-9.15); NEUTROPHILS PERCENT AUTO 81 % (41-73); Platelet Count 108 K/mm3 (150-400); RDW Coefficient Variation 13.8 % (11.7-14.2); RDW Standard Deviation 45.6 fL (35.1-46.3); Red Blood Cell Count 5.73 M/mm3 (4.30-5.90); White Blood Cell Count 8.64 K/mm3 (4.00-11.30)
[2023-06-02 06:59] LABS: Bun/Creatinine Ratio 19.5 (12.0-20.0); Calcium, Blood 8.6 mg/dL (8.5-10.1); Creatinine, Blood 1.33 mg/dL (0.60-1.20); Potassium, Blood 3.6 mmol/L (3.5-5.5)
[2023-06-02 07:48] VITALS: BP 143/97
--- NOTE | 2023-06-02 08:24 | NUR ---
SHIFT SUMMARY YOLIS IS ALERT AND SEEMS TO BE ORIENTED, HARD TO ASSESS D/T DYSPHAGIA. VSS ON 2L NC. STILL NEED SPUTUM SAMPLE. NSR IN THE 70'S PER TELEMETRY. DENIES PAIN. TOLERATING THIN LIQUIDS WITH A STRAW. NO COUGHING AFTERWARDS. PT IS INCONTINENT OF URINE, HAS LARGE OUTPUT. NO BM THIS SHIFT, NONE CHARTED SINCE ADMIT. PT COULD BENEFIT FROM SOME BOWEL MEDICATIONS, WILL PASS ON TO DAY RN. PT COMPLETELY FLACCID ON RIGHT SIDE EXTREMETIES. REPOSITIONED TOLERATED. BED IN LOWEST POSITION, CALL LIGHT WITHIN REACH. BED ALARM SET FOR PT'S SAFETY. PT HAS NOT CALLED THIS SHIFT, BUT ALSO HAS NOT ATTEMPTED TO EXIT THE BED. DROPLET PRECAUTIONS MAINTAINED FOR HX OF MRSA IN SPUTUM.
[2023-06-02 11:45] LABS: SARS-Cov-2 (COVID-19) PCR, MMC NEGATIVE (NEGATIVE)
--- NOTE | 2023-06-02 16:04 | NUR ---
DISCHARGE SUMMARY: PATIENT DENIED PAIN OR DISCOMFORT THROUGHOUT THE SHIFT. PATIENT FOLLOWING COMMANDS AND WORKING TO ASSIST WITH REPOSITIONING. PATIENT ABLE TO FEED HIMSELF. PATIENT ABLE TO ANSWER YES/NO QUESTIONS. AT TIMES, PATIENT ABLE TO ANSWER IN SHORT SENTENCES. CONTINUES TO BE FLACCID ON RIGHT SIDE. PATIENT REPORTS HE HAS SENSATION IN RIGHT ARM. PATIENT STABLE ON 2L VIA NC. PATIENT DENIES SHORTNESS OR BREATH OR DIFFICULTY BREATHING. PATIENT WORKED WITH PT AND OT. PER ORDERS, PATIENT READY FOR DISCHARGE. PATIENT DISCHARGED TO [facility]. CM REPORTED THAT THEY HAVE LEFT A MESSAGE FOR THE PATIENT'S ABOUT THE DISCHARGE. PATIENT BELONGINGS PACKED UP AND DISCHARGED WITH THE PATIENT. PATIENT DISCHARGED WITH TRANSPORT. PATIENT STABLE AT TIME OF DISCHARGE. REPORT CALLED AND GIVEN TO [facility], INCLUDING NEW MEDICATION ORDER THAT CAME THROUGH AFTER PATIENT DISCHARGED.
== END 2023-06-02 15:13 | DRG 65 ==
LOC: ER 09:36 → MEDS 09:37
PROVIDERS: Emergency Medicine; Family Medicine; Student in an Organized Health Care Education/Training Program; ADMIT Hospitalist
DX: I63.9 Cerebral infarction, unspecified (principal); G81.91 Hemiplegia, unspecified affecting right dominant side; N17.9 Acute kidney failure, unspecified; R47.01 Aphasia; I10 Essential (primary) hypertension; J44.9 Chronic obstructive pulmonary disease, unspecified; I65.21 Occlusion and stenosis of right carotid artery; S80.02XA Contusion of left knee, initial encounter; S80.01XA Contusion of right knee, initial encounter; X58.XXXA Exposure to other specified factors, initial encounter; I70.201 Unspecified atherosclerosis of native arteries of extremities, right leg; R29.714 NIHSS score 14; Z79.82 Long term (current) use of aspirin; Z87.891 Personal history of nicotine dependence; Z86.73 Personal history of transient ischemic attack (TIA), and cerebral infarction without residual deficits
CPT/HCPCS: 31720; 36415; 70450; 70496; 70498; 71045; 80047; 80048; 80053; 82550; 82803; 85014; 85025; 92523; 92610; 93005; 93010; 93926; 94760; 96360-59; 96372; 97110; 97112; 97162; 97165; 97530; 99285-25; A9270; C8929; G0378; J1650; J7030; Q9957; Q9967; U0002

== ENCOUNTER 2024-04-12 15:15 | Inpatient (IN) | payer OTHER ==
[~2024-04-12] VITALS: Ht 180.3 cm; Wt 71.5 kg
[~2024-04-12 15:15] MED LIST changes: -ASPI81CH PO; +Aspir 8181 MG PO; +CHLO25B PO; +TIOT18 INH
[2024-04-12] MEDS ORDERED: Albuterol 2.5 MG/3 ML VIAL INH SCH ×2 (15:45→19:40)
[2024-04-12] MEDS ORDERED: MethylPREDNISolone Sod Succ 125 MG Vial IV ONE (15:45)
[2024-04-12] MEDS ORDERED: Ipratropium Bromide INH 0.02% 0.5 mg/2.5ML Vial INH SCH ×2 (15:45→19:40)
[2024-04-12 15:51] LABS: PCO2 Venous 90.4 mmHg (38-42); pH Blood Venous 7.21 (7.34-7.37)
[2024-04-12 15:52] LABS: Base Excess Venous 8.1 mmol/L; Bicarbonate Venous 26.8 mmol/L (24.0-30.0)
[2024-04-12 15:56] LABS: BASOPHILS ABSOLUTE AUTO 0.11 K/mm3 (0.00-0.23); BASOPHILS PERCENT AUTO 1 % (0-2); EOSINOPHILS ABSOLUTE AUTO 0.03 K/mm3 (0.00-0.68); EOSINOPHILS PERCENT AUTO 0 % (0-6); Hemoglobin 18.3 g/dL (13.5-17.5); IMMATURE GRAN ABSOLUTE AUTO 0.02 K/mm3 (0.00-0.10); IMMATURE GRAN PERCENT AUTO 0 % (0-1); LYMPHOCYTES ABSOLUTE AUTO 0.49 K/mm3 (0.84-5.20); LYMPHOCYTES PERCENT AUTO 5 % (21-46); MONOCYTES ABSOLUTE AUTO 0.61 K/mm3 (0.16-1.47); MONOCYTES PERCENT AUTO 6 % (4-13); Mean Corpuscular HGB 30.8 pg (26.0-34.0); Mean Corpuscular HGB Conc 31.7 g/dL (31.5-36.5); Mean Corpuscular Volume 97 fL (80-100); NEUTROPHILS ABSOLUTE AUTO 9.73 K/mm3 (1.96-9.15); NEUTROPHILS PERCENT AUTO 88 % (41-73); Platelet Count 139 K/mm3 (150-400); RDW Coefficient Variation 14.7 % (11.7-14.2); Red Blood Cell Count 5.94 M/mm3 (4.30-5.90); White Blood Cell Count 10.99 K/mm3 (4.00-11.30)
[2024-04-12 16:00] LABS: Hematocrit 57.7 % (37.0-53.0)
[2024-04-12 16:31] LABS: Albumin, Blood 3.8 g/dL (3.4-5.0); Bilirubin, Total 0.6 mg/dL (0.1-1.0); Bun/Creatinine Ratio 26.1 (12.0-20.0); Calcium, Blood 9.1 mg/dL (8.5-10.1); Creatinine, Blood 1.61 mg/dL (0.60-1.20); Globulin, Blood 3.7 g/dL (2.2-4.0); Potassium, Blood 5.6 mmol/L (3.5-5.5); Total Protein, Blood 7.5 g/dL (6.4-8.2)
[2024-04-12 16:45] LABS: Influenza A, PCR NEGATIVE (NEGATIVE); Influenza B, PCR NEGATIVE (NEGATIVE); Resp Syncytial Virus, PCR NEGATIVE (NEGATIVE); SARS-Cov-2 (COVID-19) PCR, MMC NEGATIVE (NEGATIVE)
[2024-04-12 20:16] LABS: Source, Urine Clean Catch
[2024-04-12 20:33] LABS: Appearance, Urine Clear (Clear); Bilirubin, Urine Neg (Neg); Blood, Urine 2+ (Neg); Color, Urine Yellow (P-Yellow); Glucose Qualitative, Urine Neg (Neg); Ketones, Urine Neg (Neg); Leukocyte Esterase, Urine Neg (Neg); Nitrite, Urine Neg (Neg); Protein, Urine 3+ (Neg); Specific Gravity, Urine 1.025 (1.003-1.022); Urobilinogen, Urine NORM (Normal)
[2024-04-12 20:41] LABS: Hyaline Casts 0-2 /lpf (0-2); White Blood Cells, Urine 0-2 /hpf (0-5)
[2024-04-12 20:42] LABS: Bacteria Rare /hpf; Red Blood Cells, Urine 0-2 /hpf (0-2); Squamous Epithelial Cells Not Seen /hpf (Few)
[2024-04-12] MEDS ORDERED: Ipratropium/Albuterol SulF 2.5-0.5MG/3 ML Amp INH PRN (22:25)
[2024-04-12] MEDS ORDERED: Ondansetron HCl 2 MG / ML 2ML Vial IV PRN (22:30)
[2024-04-12] MEDS ORDERED: FLU VACC TS2024-25(6MOS UP)/PF 45 MCG/0.5 ML SYRINGE IM ONE (22:30)
[2024-04-12] MEDS ORDERED: NS 1,000 ML IV SCH (22:30)
[2024-04-12] MEDS ORDERED: Azithromycin 500 MG in NS 250 ML IV SCH (22:47)
[2024-04-12] MEDS ORDERED: Enoxaparin 40 MG/0.4 ML SYR SC SCH (23:00)
[2024-04-13] MEDS ORDERED: MethylPREDNISolone Sod Succ 125 MG Vial IV SCH
[2024-04-13 03:41] LABS: BASOPHILS ABSOLUTE AUTO 0.01 K/mm3 (0.00-0.23); BASOPHILS PERCENT AUTO 0 % (0-2); EOSINOPHILS PERCENT AUTO 0 % (0-6); Hematocrit 51.4 % (37.0-53.0); IMMATURE GRAN ABSOLUTE AUTO 0.02 K/mm3 (0.00-0.10); IMMATURE GRAN PERCENT AUTO 0 % (0-1); LYMPHOCYTES ABSOLUTE AUTO 0.27 K/mm3 (0.84-5.20); LYMPHOCYTES PERCENT AUTO 4 % (21-46); MONOCYTES ABSOLUTE AUTO 0.05 K/mm3 (0.16-1.47); MONOCYTES PERCENT AUTO 1 % (4-13); Mean Corpuscular HGB 30.2 pg (26.0-34.0); Mean Corpuscular HGB Conc 31.1 g/dL (31.5-36.5); Mean Corpuscular Volume 97 fL (80-100); NEUTROPHILS ABSOLUTE AUTO 6.33 K/mm3 (1.96-9.15); NEUTROPHILS PERCENT AUTO 95 % (41-73); Platelet Count 121 K/mm3 (150-400); RDW Coefficient Variation 14.7 % (11.7-14.2); RDW Standard Deviation 53.7 fL (35.1-46.3); Red Blood Cell Count 5.29 M/mm3 (4.30-5.90); White Blood Cell Count 6.68 K/mm3 (4.00-11.30)
[2024-04-13 04:13] LABS: Albumin, Blood 3.2 g/dL (3.4-5.0); Bilirubin, Total 0.5 mg/dL (0.1-1.0); Bun/Creatinine Ratio 24.3 (12.0-20.0); Calcium, Blood 8.9 mg/dL (8.5-10.1); Creatinine, Blood 1.89 mg/dL (0.60-1.20); Globulin, Blood 3.2 g/dL (2.2-4.0); Potassium, Blood 4.4 mmol/L (3.5-5.5); Total Protein, Blood 6.4 g/dL (6.4-8.2)
[2024-04-13 04:28] LABS: Base Excess Venous 2.9 mmol/L; Bicarbonate Venous 25.3 mmol/L (24.0-30.0); PCO2 Venous 59.3 mmHg (38-42)
[2024-04-13] MEDS ORDERED: Ipratropium/Albuterol SulF 2.5-0.5MG/3 ML Amp INH SCH (07:30)
[2024-04-13 09:12] VITALS: BP 127/72
[2024-04-13] MEDS ORDERED: Pantoprazole Sodium 20 MG Tab PO SCH (10:00)
[2024-04-13] MEDS ORDERED: Tamsulosin HCl 0.4 MG Cap PO SCH (10:00)
[2024-04-13] MEDS ORDERED: PredniSONE 20 MG Tab PO SCH (10:00)
[2024-04-13] MEDS ORDERED: NORVASC10 MG PO ×2 (10:24→11:02)
[2024-04-13] MEDS ORDERED: SENNA LAXATIVE8.6 MG PO (10:25)
[2024-04-13] MEDS ORDERED: ATOR40TA PO (10:27)
[2024-04-13] MEDS ORDERED: OMEP20ER PO (10:42)
[2024-04-13] MEDS ORDERED: Aspirin 81 MG TabEC PO SCH (11:00)
[2024-04-13] MEDS ORDERED: Prinivil10 MG PO (11:02)
[2024-04-13] MEDS ORDERED: Sennosides 8.6 MG Tab PO PRN (11:05)
[2024-04-13] MEDS ORDERED: Albuterol HFA200 ACT/6.7 GM INH INH PRN (11:15)
[2024-04-13] MEDS ORDERED: Atorvastatin 40 MG Tab PO SCH (11:15)
[2024-04-13] MEDS ORDERED: Tiotropium Bromide 2.5 MCG/ACT MIST INHAL (10 ACT/4 GM) INH SCH (11:20)
[2024-04-13 15:59] VITALS: BP 103/63
[2024-04-13] MEDS ORDERED: Lactated Ringer's 1,000 ML IV SCH (16:00)
--- NOTE | 2024-04-13 20:10 | NUR ---
EOS: PATINET IS ALERT AND ORIENTED ABLE TO MAKE NEEDS KNOWN, DENIES CHEST PAIN PRESSURE OR SOB. INFUSING LR AT 125. NS WAS DC'D. PATIENT EATING AND DRINKING INDEPENDENTLY WITH NO ISSUE. SPUTUM SAMPLE SENT. SPO2 IMPROVED THORUGH THE DAY FROM 1L TO RA. NO ACUTE CONCERNS FROM THIS RN. VSS AFEBRILE.
[2024-04-13 20:25] VITALS: BP 99/63
[2024-04-14 03:52] VITALS: BP 117/74
--- NOTE | 2024-04-14 04:57 | NUR ---
SHIFT SUMMARY. SHIFT HAS BEEN UNREMARKABLE. PT AOX4, PLEASANT, COOPERATIVE WITH CARE, ABLE TO MAKE NEEDS KNOWN. HAS BEEN ABLE TO REST COMFORTABLY THROUGHOUT MOST OF SHIFT. HAS WORN BIPAP THROUGHOUT MOST OF SHIFT. VITALS HAVE REMAINED STABLE. MAINTAINS ADEQUATE SATURATION ON ROOM AIR WHILE AWAKE. HAS CONTINUED TO DENY PAIN THROUGHOUT SHIFT. ABLE TO REPOSITION SELF INDEPENDENTLY. MED STATUS NO TELE. INDEPENDENT WITH URINAL, CALLS APPROPRIATELY FOR ASSISTANCE. BED LOCKED IN LOWEST POSITION. CALL LIGHT LEFT WITHIN REACH. CONTINUING TO MONITOR.
[2024-04-14 05:38] LABS: Bun/Creatinine Ratio 35.4 (12.0-20.0); Calcium, Blood 8.8 mg/dL (8.5-10.1); Creatinine, Blood 1.44 mg/dL (0.60-1.20); Potassium, Blood 4.5 mmol/L (3.5-5.5)
[2024-04-14 07:59] VITALS: BP 127/80
[2024-04-14] MEDS ORDERED: Mometasone/Formoterol MDI 200/5 mcg 13 GM INH SCH (08:25)
[2024-04-14] MEDS ORDERED: Cholecalciferol 1000 Unit Tablet (=25MCG) PO SCH (09:00)
[2024-04-14] MEDS ORDERED: Lactobacil 2-S.Thermo-Bifido 1 1 Cap PO SCH (09:00)
[2024-04-14] MEDS ORDERED: DULERA 100 MCG/13 GM INH (09:40)
[2024-04-14] MEDS ORDERED: VISBIOME 112.51 EACH PO (09:41)
[2024-04-14] MEDS ORDERED: TAMS.4ER PO (09:41)
[2024-04-14] MEDS ORDERED: PRED20 PO (09:41)
[2024-04-14] MEDS ORDERED: AZIT250 PO (09:42)
[2024-04-14] MEDS ORDERED: DULERA 200 MCG-13 GM INH (09:44)
[2024-04-14 10:22] VITALS: BP 123/74
--- NOTE | 2024-04-14 14:07 | NUR ---
DISCHARGE: Pt and given verbal and written discharge instructions. Denies questions. Home oxygen with patient. [facility] Stable at time of discharge. Left via w/c.
== END 2024-04-14 14:02 | disposition home health service (06) | DRG 189 ==
LOC: ER 15:15 → PCU 21:27 → ERHOLD 21:27 → PCU 21:27
PROVIDERS: Internal Medicine; Student in an Organized Health Care Education/Training Program; ADMIT Internal Medicine
PROC: 5A09357 Assistance with Respiratory Ventilation, Less than 24 Consecutive Hours, Continuous Positive Airway Pressure (ICD-10-PCS; principal; 2024-04-14)
DX: J96.01 Acute respiratory failure with hypoxia (principal); J44.1 Chronic obstructive pulmonary disease with (acute) exacerbation; E87.29 Other acidosis; I69.351 Hemiplegia and hemiparesis following cerebral infarction affecting right dominant side; N17.9 Acute kidney failure, unspecified; J96.02 Acute respiratory failure with hypercapnia; I10 Essential (primary) hypertension; D50.9 Iron deficiency anemia, unspecified; I65.29 Occlusion and stenosis of unspecified carotid artery; E86.0 Dehydration; N18.30 Chronic kidney disease, stage 3 unspecified
CPT/HCPCS: 0241U; 36415; 70450; 71045; 76770; 80048; 80053; 81001; 82803; 84484; 85025; 93005; 93010; 94640; 94644; 94645; 94660; 94664; 94761; 94762; 96374; 99285-25; A9270; J0456; J1650; J2470; J2919; J7050; J7120; J7512